=== PATIENT | male | born 1970 | race Caucasian/White ===

== ENCOUNTER 2023-05-26 20:18 | Inpatient (IN) | payer MEDICARE, MEDICAID, SELFPAY ==
[2023-05-26] VITALS (8 sets, daily range): BP systolic 72–150; BP diastolic 38–86; PULSE 79–136; RESP 19–25; O2SAT 87–97; BMI 38.7
--- NOTE | ~2023-05-26 | CT_ITS ---
EXAMINATION: CT CHEST WITHOUT CONTRAST CLINICAL INFORMATION: Concern for aspiration. COMPARISON: None available. TECHNIQUE: Multidetector volumetric CT imaging of the chest was done. Axial MIP volume rendering provided. Sagittal and coronal reformatted images were obtained. This CT examination was performed using dose optimization techniques as appropriate, variously including the following: *Automated exposure control *Adjustment of mA and/or kV according to patient size (this includes techniques or standardized protocols for targeted exams where dose is matched to indication/reason for exam; i.e. extremities or head) *Use of iterative reconstruction technique DLP: 340 mGy-cm FINDINGS: LEAFLET DISTRIBUTOR: Unremarkable LUNGS: The lungs are clear with no evidence of inflammation or nodules. MEDIASTINUM: The mediastinum is normal. CORONARY ARTERY CALCIFICATION: None visualized on this study. PLEURA: There is no pleural effusion. No pleural mass or thickening. AXILLA: No lymphadenopathy. UPPER ABDOMEN: Unremarkable. OSSEOUS STRUCTURES: Unremarkable. CT/CT chest wo IV con IMPRESSION: No significant abnormality seen. Fleischner guidelines were followed.
--- NOTE | ~2023-05-26 | XR_ITS ---
EXAMINATION: XR CHEST CLINICAL INFORMATION: Concern for pneumonia. COMPARISON: Chest x-ray September 07, 2018 TECHNIQUE: Frontal portable view of the chest was obtained. 11:18 PM FINDINGS: No significant abnormality is noted involving the heart, lungs, mediastinum, bony thorax or soft tissues. XR/XR chest 1V IMPRESSION: Unremarkable examination.
--- NOTE | 2023-05-26 20:30 | ECG_ITS ---
Test Reason : od crisis Blood Pressure : / mmHG Vent. Rate : 123 BPM Atrial Rate : 123 BPM P-R Int : 156 ms QRS Dur : 094 ms QT Int : 320 ms P-R-T Axes : 035 -14 067 degrees QTc Int : 458 ms Sinus tachycardia Otherwise normal ECG When compared with ECG of 07-SEP-2017 06:32, Minimal criteria for Inferior infarct are no longer Present Nonspecific T wave abnormality no longer evident in Inferior leads Nonspecific T wave abnormality, improved in Lateral leads Referred By: Cody Adam Electronically Signed By:Edgar Bloom
--- NOTE | 2023-05-26 20:38 | PC.NURSE ---
Pt alert and confused. Reporting SI I just want to drive my car into the river. Why are you trying to kill me. Increased agitation. Calms down with verbal reassurance. Sinus tach on monitor with HR 130's. Pt changed into hospital attire. Belongings placed in decon. MLP at bedside.
[2023-05-26 20:50] LABS: MANUAL DIFF FLAG NO
--- NOTE | 2023-05-26 20:53 | ED_ITS ---
HPI - General Adult General Chief complaint: Psychiatric Symptoms Stated complaint: crisis Time Seen by Provider: 05/26/23 20:24 Source: patient Mode of arrival: ambulatory Limitations: no limitations History of Present Illness HPI narrative: 53-year-old male first-time to this hospital history of drug abuse presents to the ED for crack cocaine use. Patient was brought by EMS with [facility] Department for patient being aggressive in the street and screaming. Patient taking drugs crack cocaine for the past 2 days straight. Patient states he was kicked out by his 2 days ago. Patient states he was clean for 7 years. Patient denies any trauma to the head. Patient wants detox. Related Data Home Medications Medication Instructions Recorded Confirmed cholecalciferol (vitamin D3) 50 50 mcg PO DAILY 05/27/23 05/27/23 mcg (2,000 unit) tablet (Vitamin D3) levothyroxine 150 mcg tablet 150 mcg PO DAILY 05/27/23 05/27/23 loratadine 10 mg tablet 10 mg PO DAILY 05/27/23 05/27/23 nabumetone 750 mg tablet 750 mg PO BID 05/27/23 05/27/23 Allergies Allergy/AdvReac Type Severity Reaction Status Date / Time No Known Allergies Allergy Unverified 01/21/20 19:29 [No Known Allergies*] Review of Systems 2 Review of Systems: Drug use Yes all other systems are reviewed and are negative PMFSH Past Medical History Onset Date is defined in the Problem List Problems that require an onset date and time if occurred within 24 hrs of arrival to the ED Aortic Dissection and Rupture; Neurologic impairment; Cardiopulmonary Arrest; Endotracheal Intubation; Insertion or Replacement of Mechanical Circulatory Assist Device Medical History Hypothyroidism Polysubstance use disorder Social History Social History Patient Tobacco Use Status: Current everyday Tobacco user Smoked in Last 30 Days: Yes Use of substances other than those prescribed or required for medical reasons: Yes Substance Use Type: Crack/Cocaine Last Used Substance: Just Prior to Admission Advance Directives: No Advance Directives Information Provided: No Nutrition Risks: No Nutritional Risk Physical Exam ED Vital Signs: Vital Signs - 24 hr 05/26/23 20:33 05/26/23 21:40 05/26/23 21:55 Pulse Rate 136 H 100 79 Respiratory Rate 24 H 25 H 24 H Blood Pressure 150/86 H 99/63 72/38 L Pulse Oximetry 96 87 L 88 L Oxygen Delivery Method Room Air Room Air Nasal Cannula Oxygen Flow Rate 2 05/26/23 22:10 05/26/23 22:25 05/26/23 22:40 Pulse Rate 92 88 86 Respiratory Rate 21 H 20 19 Blood Pressure 123/67 122/70 101/65 Pulse Oximetry 97 97 Oxygen Delivery Method Nasal Cannula Room Air Room Air Oxygen Flow Rate 2 05/26/23 22:55 05/26/23 23:10 Pulse Rate 83 94 Respiratory Rate 23 H Blood Pressure 100/57 L 132/83 Pulse Oximetry Oxygen Delivery Method Oxygen Flow Rate BMI result Body Mass Index 38.7 Const General: cooperative, healthy appearing, comfortable, no acute distress and well developed [facility] Head: Yes normal to inspection, Yes No palpable skull fracture present, Yes normocephalic and Yes atraumatic Eyes General: appearance normal, both eyes and all related structures Neck Neck: Yes normal visual inspection, Yes full ROM, Yes no lymphadenopathy, Yes no meningeal signs, Yes trachea midline, Yes supple, No anterior neck swelling and No tender Chest Chest palpation & inspection: normal inspection of the chest and normal palpation of entire chest wall Resp Effort & Inspection: normal respiratory effort and able to speak in complete sentences Auscultation: clear to auscultation bilaterally Cardio Jugular venous distension: no JVD Heart sounds: S1 normal heart sound present and S2 normal heart sound present GI Inspection: Yes normal to inspection Palpation (GI): Soft to palpation, not firm, nontender, no guarding and not rigid General: No CVA tenderness and Yes no CVA tenderness Back/Spine/Pelvis Back: no CVA tenderness, No CVA tenderness and No back tenderness Skin General skin exam: no rashes or lesions noted, elasticity normal and turgor normal Neuro Other: Aggressive towards staff General: no meningeal signs Extrem General: Yes normal to inspection, Yes full ROM and Yes capillary refill normal Medications Administered Generic Name Dose Route Start Last Admin Trade Name Freq PRN Reason Stop Dose Admin Enoxaparin Sodium 40 mg 05/27/23 00:30 05/27/23 01:03 Enoxaparin Sodium 40 Mg/0.4 Ml Syringe SUBCUT 40 mg BEDTIME STACY Administration Sodium Chloride 3 ml 05/27/23 08:00 05/27/23 07:42 0.9 % Sodium Chloride Flush 3 Ml Syringe IVFLUSH 3 ml QSHIFT STACY Administration Discontinued Medications Generic Name Dose Route Start Last Admin Trade Name Millie PRN Reason Stop Dose Admin Sodium Chloride 1,000 mls @ 999 mls/hr 05/26/23 21:17 05/26/23 23:26 Ns IV 05/26/23 22:17 Infused .Q1H1M STA Infusion Sodium Chloride 1,000 mls @ 999 mls/hr 05/26/23 21:19 05/26/23 22:11 Ns IV 05/26/23 22:19 Infused .Q1H1M STA Infusion Sodium Chloride 1,000 mls @ 999 mls/hr 05/26/23 21:48 05/26/23 23:26 Ns IV 05/26/23 22:48 Infused .Q1H1M STA Infusion Ceftriaxone Sodium 1 gm/ 50 mls @ 100 mls/hr 05/27/23 00:28 05/27/23 01:33 Sodium Chloride IV 05/27/23 00:57 Infused ONCE ONE Infusion Midazolam HCl 4 mg 05/26/23 20:51 05/26/23 21:38 Midazolam Hcl/Pf 2 Mg/2 Ml Vial IM 05/26/23 20:52 4 mg ONCE ONE Administration Olanzapine 10 mg 05/26/23 20:51 05/26/23 21:38 Olanzapine 10 Mg Vial IM 05/26/23 20:52 10 mg STAT STA Administration Medical Decision Making Medical Decision Making MDM Narrative: 53-year-old male brought to the ED for being aggressive and doing crack cocaine. Patient brought under police custody of the hand coughs. Patient was calm and then became disruptive saying people following him and aggressive and unsafe for himself. Labs showed CO of 8 necessity for IV fluids and VBG to be done but patient refused the patient was given Versed and Zyprexa which then caused hypoxia and hypotension. Patient placed on nasal cannula and now being given IV fluids. intial labs shows biCARB of 8 so VBG was ordered which showed nomral PH and HC03. 10:30pm: Repeat CO was too was 20. Probably lab error due to CO of 8. Lactic acid 7 most likely from drug use. Fluids ordered. Chest x-ray ordered to rule out aspiration pneumonia also speak cath for urine 02 saturation on room air is 100%. WBC count is from drug use. Patient is not septic. 11:51: Chest x-ray negative for infection. UA negative for infection. U tox positive for cocaine, marijuana, and fentanyl. Case discussed with Hospitalists, Dr. Collins who agrees patient should be admitted for Drug indcued SANIA. yesterday. HE believes patient is not septic. Differential Diagnosis Differential Diagnoses: The differential diagnosis associated with the presentation includes (drug induced encephalpathy, susbstance abuse, SANIA) Admission/Observation Consideration of admission/observation: Escalation of care including admission/observation considered Consult Healthcare Provider Management of the patient was discussed with: Hospitalist (Dr. Collins) Lab Data MDM Lab Attestation statement: I reviewed the patient's lab results. 05/27/23 05:15 05/27/23 05:15 Labs: Lab Results 05/26/23 05/26/23 05/26/23 Range/Units 20:46 21:49 21:54 WBC 17.8 H (4.8-10.8) X10*3/uL RBC 5.46 (4.60-5.80) X10*6/uL Hgb 16.3 (14.0-18.0) g/dl Hct 49.5 (42.0-52.0) % MCV 90.7 (80.0-98.0) fL MCH 29.9 (27.0-33.0) pg MCHC 32.9 (31.0-36.0) g/dl RDW 13.3 (11.0-16.0) % Plt Count 328 (160-400) X10*3/uL MPV 9.3 L (9.4-12.4) fL Immature Gran % (Auto) 1.0 H (0.0-0.4) % Neut % (Auto) 77.7 H (45-73) % Lymph % (Auto) 15.2 L (20-40) % [place] % (Auto) 5.6 (2-11) % Eos % (Auto) 0.1 (0-4) % Baso % (Auto) 0.4 (0-2) % Lymph # (Auto) 2.7 (1.2-4.9) X10*3/uL [place] # (Auto) 1.0 (0.1-1.2) X10*3/uL Eos # (Auto) 0.0 (0.0-0.4) X10*3/uL Baso # (Auto) 0.1 (0.0-0.2) X10*3/uL Abs Immat Gran (auto) 0.18 H (0.00-0.03) X10*3/uL Absolute Neuts (auto) 13.8 H (2.0-8.3) x10*3/uL Absolute Nucleated RBC 0.000 (0.0-0.012) X10*3/uL Nucleated RBC % (auto) 0.0 (0.0-0.2) /100WBC VBG pH 7.39 (7.32-7.43) VBG pCO2 28 mmHg VBG pO2 37 mmHg VBG HCO3 17 L (22-26) mmol/L VBG O2 Saturation 59.0 % VBG Base Excess -5.8 mmol/L Sodium 143 (135-145) mmol/L Potassium 3.7 (3.3-5.1) mmol/L Chloride 105 (96-108) mmol/L Carbon Dioxide 8 L* (22-29) mmol/L Anion Gap 34 H (12-20) BUN 19 H (9-16) mg/dL Creatinine 1.86 H (0.5-1.4) mg/dL Estim Creat Clear Calc 53.1 Estimated GFR 38 Random Glucose 180 H (60-115) mg/dL Lactic Acid 7.0 H* (0.5-2.0) mmol/L Calcium 9.9 (8.4-10.2) mg/dL Total Bilirubin 1.2 H (0.0-1.0) mg/dL AST 18 (5-37) U/L ALT 15 (0-40) U/L Alkaline Phosphatase 81 (39-117) U/L Total Creatine Kinase 442 H (38-174) U/L Total Protein 8.3 H (6.5-8.0) g/dL Albumin 4.5 (3.5-5.0) g/dL Urine Color Urine Appearance Urine pH (5.0-9.0) Ur Specific [place] (1.005-1.025) Urine Protein (Neg-Trace) mg/dL Urine Glucose (UA) (Negative) mg/dL Urine Ketones (Negative) mg/dL Urine Blood (Negative) Urine Nitrite (Negative) Ur Leukocyte Esterase (Negative) Urine RBC (0-2) /HPF Urine WBC (0-5) /HPF Ur Squamous Epith Cells (0-2) /HPF Urine Bacteria (None Seen) Hyaline Casts (0-2) /LPF Granular Casts Urine Opiates Screen (Not Detect) Urine Fentanyl Screen (Not Detect) Ur Barbiturates Screen (Not Detect) Ur Phencyclidine Scrn (Not Detect) Ur Amphetamines Screen (Not Detect) U Benzodiazepines Scrn (Not Detect) Urine Cocaine Screen (Not Detect) U Marijuana (THC) Screen (Not Detect) Ethyl Alcohol < 10 mg/dL 05/26/23 05/26/23 Range/Units 22:29 23:25 WBC (4.8-10.8) X10*3/uL RBC (4.60-5.80) X10*6/uL Hgb (14.0-18.0) g/dl Hct (42.0-52.0) % MCV (80.0-98.0) fL MCH (27.0-33.0) pg MCHC (31.0-36.0) g/dl RDW (11.0-16.0) % Plt Count (160-400) X10*3/uL MPV (9.4-12.4) fL Immature Gran % (Auto) (0.0-0.4) % Neut % (Auto) (45-73) % Lymph % (Auto) (20-40) % [place] % (Auto) (2-11) % Eos % (Auto) (0-4) % Baso % (Auto) (0-2) % Lymph # (Auto) (1.2-4.9) X10*3/uL [place] # (Auto) (0.1-1.2) X10*3/uL Eos # (Auto) (0.0-0.4) X10*3/uL Baso # (Auto) (0.0-0.2) X10*3/uL Abs Immat Gran (auto) (0.00-0.03) X10*3/uL Absolute Neuts (auto) (2.0-8.3) x10*3/uL Absolute Nucleated RBC (0.0-0.012) X10*3/uL Nucleated RBC % (auto) (0.0-0.2) /100WBC VBG pH (7.32-7.43) VBG pCO2 mmHg VBG pO2 mmHg VBG HCO3 (22-26) mmol/L VBG O2 Saturation % VBG Base Excess mmol/L Sodium 144 (135-145) mmol/L Potassium 4.0 (3.3-5.1) mmol/L Chloride 112 H (96-108) mmol/L Carbon Dioxide 20 L (22-29) mmol/L Anion Gap 16 (12-20) BUN 20 H (9-16) mg/dL Creatinine 1.64 H (0.5-1.4) mg/dL Estim Creat Clear Calc 60.2 Estimated GFR 44 Random Glucose 92 (60-115) mg/dL Lactic Acid (0.5-2.0) mmol/L Calcium 8.5 D (8.4-10.2) mg/dL Total Bilirubin 1.0 (0.0-1.0) mg/dL AST 16 (5-37) U/L ALT 13 (0-40) U/L Alkaline Phosphatase 61 (39-117) U/L Total Creatine Kinase (38-174) U/L Total Protein 6.5 (6.5-8.0) g/dL Albumin 3.6 (3.5-5.0) g/dL Urine Color Yellow Urine Appearance Clear Urine pH 5.5 (5.0-9.0) Ur Specific [place] 1.020 (1.005-1.025) Urine Protein 100 (2+) H (Neg-Trace) mg/dL Urine Glucose (UA) Negative (Negative) mg/dL Urine Ketones 15 (Negative) mg/dL Urine Blood Large (3+) H (Negative) Urine Nitrite Negative (Negative) Ur Leukocyte Esterase Negative (Negative) Urine RBC >20 H (0-2) /HPF Urine WBC 6-10 H (0-5) /HPF Ur Squamous Epith Cells 6-10 (0-2) /HPF Urine Bacteria None Seen (None Seen) Hyaline Casts 3-5 (0-2) /LPF Granular Casts Present Urine Opiates Screen Not Detected (Not Detect) Urine Fentanyl Screen POSITIVE H (Not Detect) Ur Barbiturates Screen Not Detected (Not Detect) Ur Phencyclidine Scrn Not Detected (Not Detect) Ur Amphetamines Screen Not Detected (Not Detect) U Benzodiazepines Scrn POSITIVE H (Not Detect) Urine Cocaine Screen POSITIVE H (Not Detect) U Marijuana (THC) Screen POSITIVE H (Not Detect) Ethyl Alcohol mg/dL Independent Interpretation I performed an independent interpretation of an: Plain X-Ray Radiology Impression Discussion of test interpretation with radiology: I have reviewed the radiologist's reading. Independent Historian Clinical information obtained from an independent historian. History obtained from or confirmed by: EMS External Record Review External record reviewed: Other (prior visits) Social Determinants Patient?s care significantly limited by Social Determinants of Health including: Alcoholism and drug addiction in family Discharge Plan Discharge Clinical Impression: Polysubstance use disorder, Drug-induced psychotic disorder, SANIA (acute kidney injury) Patient Disposition: Admitted As Inpatient Interventions: [place]-Suicide Risk Severity Scale Last Done: 05/27/23 10:00
[2023-05-26 20:55] LABS: Basophils Absolute Auto 0.1 X10*3/uL (0.0-0.2); Basophils Percent Auto 0.4 % (0-2); Eosinophils Percent Auto 0.1 % (0-4); Hematocrit 49.5 % (42.0-52.0); Hemoglobin 16.3 g/dl (14.0-18.0); Imm Gran Abs Auto 0.18 X10*3/uL (0.00-0.03); Lymphocytes Absolute Auto 2.7 X10*3/uL (1.2-4.9); Lymphocytes Percent Auto 15.2 % (20-40); Mean Corpuscular HGB Conc 32.9 g/dl (31.0-36.0); Mean Corpuscular Hemoglobin 29.9 pg (27.0-33.0); Mean Corpuscular Volume 90.7 fL (80.0-98.0); Mean Platelet Volume 9.3 fL (9.4-12.4); Monocytes Percent Auto 5.6 % (2-11); Neutrophils Absolute Auto 13.8 x10*3/uL (2.0-8.3); Neutrophils Percent Auto 77.7 % (45-73); Platelet Count 328 X10*3/uL (160-400); Red Blood Count 5.46 X10*6/uL (4.60-5.80); Red Cell Distribution Width 13.3 % (11.0-16.0); White Blood Count 17.8 X10*3/uL (4.8-10.8)
--- NOTE | 2023-05-26 21:07 | PC.NURSE ---
Pt becoming increasingly agitated. Yelling help me. Why are you trying to kill me. Pt is confused and having visual hallucinations reporting multiple people around him and only this keno writer / runner in the room. MLP ordered IM medications. Pt declined meds and became calm and cooperative and not yelling. Pt not medicated at this time as pt is calm and cooperative at the bedside.
[2023-05-26 21:16] LABS: Alanine Aminotransferase 15 U/L (0-40); Albumin Level 4.5 g/dL (3.5-5.0); Alkaline Phosphatase 81 U/L (39-117); Anion Gap 34 (12-20); Aspartate Amino Transferase 18 U/L (5-37); Bilirubin Total 1.2 mg/dL (0.0-1.0); Blood Urea Nitrogen 19 mg/dL (9-16); Calcium 9.9 mg/dL (8.4-10.2); Carbon Dioxide 8 mmol/L (22-29); Chloride 105 mmol/L (96-108); Creatinine Clr Calc Pharmacy 53.1; Estimated Glomerular Filt Rate 38; Ethanol < 10 mg/dL; Glucose Random 180 mg/dL (60-115); Potassium 3.7 mmol/L (3.3-5.1); Sodium 143 mmol/L (135-145); Total Protein 8.3 g/dL (6.5-8.0)
--- NOTE | 2023-05-26 21:19 | PC.NURSE ---
Critical result received: CO2 8 Critical provided to Cody. No new orders received at this time. Pt remains calm and cooperative at the bedside. Pitcher of water provided to pt as requested.
[2023-05-26] MEDS: OLANZapine 10 MG VIAL IM (21:38)
[2023-05-26] MEDS: Midazolam HCl/PF 2 MG/2 ML VIAL 4 MG IM (21:38)
--- NOTE | 2023-05-26 21:39 | PC.NURSE ---
Pt confused, yelling, agitated. Unable to redirect. Reports people are out to kill him. Critical labs received. Pt in need of IV fluids. Agitated and confused. Unable to place IV line safely. Medicated as ordered per MLP.
--- NOTE | 2023-05-26 21:40 | PC.NURSE ---
SPO2 87% RA. Pt placed on 2L NC. MLP aware.
[2023-05-26] MEDS: 0.9 % Sodium Chloride 1,000 ML 999 ML IV ×3 (21:49→22:11)
[2023-05-26 22:01] LABS: VBG Base Excess -5.8 mmol/L; VBG HCO3 17 mmol/L (22-26); VBG pCO2 28 mmHg; VBG pH 7.39 (7.32-7.43); VBG pO2 37 mmHg
[2023-05-26 22:02] LABS: Venous Blood Gas Refer to POC result
--- NOTE | 2023-05-26 22:19 | PC.NURSE ---
Pt sleeping at the bedside. No apparent distress noted. Breahts are even regular and unlabored. 20G IV line placed on the R AC. NS started as ordered. BP noted to be decreasing. MLP notified and at bedside.
[2023-05-26 22:51] LABS: Alanine Aminotransferase 13 U/L (0-40); Albumin Level 3.6 g/dL (3.5-5.0); Alkaline Phosphatase 61 U/L (39-117); Anion Gap 16 (12-20); Aspartate Amino Transferase 16 U/L (5-37); Blood Urea Nitrogen 20 mg/dL (9-16); Calcium 8.5 mg/dL (8.4-10.2); Carbon Dioxide 20 mmol/L (22-29); Chloride 112 mmol/L (96-108); Creatinine Clr Calc Pharmacy 60.2; Estimated Glomerular Filt Rate 44; Glucose Random 92 mg/dL (60-115); Sodium 144 mmol/L (135-145); Total Protein 6.5 g/dL (6.5-8.0)
[2023-05-26 23:33] LABS: Appearance Urine Clear; Color Urine Yellow; Glucose Urine UA Negative (Negative); Leukocyte Esterase Urine Negative (Negative); Nitrite Urine Negative (Negative); PH 5.5 (5.0-9.0); UMIC TRIGGER UACC YES; Urine Blood Large (3+) (Negative); Urine Ketones 15 mg/dL (Negative); Urine Protein 100 (2+) mg/dL (Neg-Trace)
[2023-05-26 23:39] LABS: Amphetamine Screen Urine Not Detected (Not Detect); Barbiturates, Urine Not Detected (Not Detect); Benzodiazepines Screen Urine POSITIVE (Not Detect); Cannabinoid Screen Urine POSITIVE (Not Detect); Cocaine Screen Urine POSITIVE (Not Detect); Fentanyl, urine POSITIVE (Not Detect); Opiate Screen Urine Not Detected (Not Detect); Phencyclidine Screen Urine Not Detected (Not Detect)
[2023-05-26 23:40] LABS: Bacteria Urine None Seen (None Seen); Granular Casts Urine Present; RBC Urine >20 /HPF (0-2); UACC Culture Trigger YES
[2023-05-26 23:55] LABS: Reflex Lactate? Lactic Acid Added
[2023-05-27] VITALS (7 sets, daily range): BP systolic 110–141; BP diastolic 60–79; PULSE 59–84; RESP 15–20; TEMP 36.5–37.6; O2SAT 95–98; BMI 36.4
--- NOTE | 2023-05-27 00:10 | PM.IMHP ---
History of Present Illness Date of Service: 05/27/23 Chief Complaint: Altered mentation This is a 53-year-old male with pertinent history of polysubstance use disorder, hypothyroidism who was brought to the emergency department for evaluation of altered mentation. Patient was brought in via [employer] police department as he was screaming and being aggressive in the street. Patient admitted to using crack cocaine for the past 2 days. States he was kicked out by his . History obtained via ER provider. Patient is only eye opening to painful stimulus at the time of my evaluation. He was given Versed and Zyprexa in the ER for agitation. He is interested in detox and was apparently clean for the last 7 years. Unable to obtain review of systems. In the emergency department, UDS positive for fentanyl and cocaine. Creatinine found to be elevated and patient found to have lactic acidosis Review of Systems Review of Systems: Yes Unobtainable due to mental status PMFSH Medical History Hypothyroidism Polysubstance use disorder Pertinent family history: Unable to obtain Social History Patient Tobacco Use Status: Current everyday Tobacco user Smoked in Last 30 Days: Yes Use of substances other than those prescribed or required for medical reasons: Yes Substance Use Type: Crack/Cocaine Last Used Substance: Just Prior to Admission Advance Directives: No Advance Directives Information Provided: No Nutrition Risks: No Nutritional Risk Meds Allergies Allergy/AdvReac Type Severity Reaction Status Date / Time No Known Allergies Allergy Unverified 01/21/20 19:29 [No Known Allergies*] Home Medications Medication Instructions Recorded Confirmed Last Taken Type cholecalciferol (vitamin D3) 50 50 mcg PO DAILY 05/27/23 05/27/23 Unknown History mcg (2,000 unit) tablet (Vitamin D3) levothyroxine 150 mcg tablet 150 mcg PO DAILY 05/27/23 05/27/23 Unknown History loratadine 10 mg tablet 10 mg PO DAILY 05/27/23 05/27/23 Unknown History nabumetone 750 mg tablet 750 mg PO BID 05/27/23 05/27/23 Unknown History Physical Exam Vital Signs and Narrative: Vital Signs: Last Vital Signs Pulse 92 05/26/23 22:10 Resp 21 H 05/26/23 22:10 BP 123/67 05/26/23 22:10 Pulse Ox 88 L 05/26/23 21:55 O2 Del Method Nasal Cannula 05/26/23 22:10 O2 Flow Rate 2 05/26/23 22:10 BMI result Body Mass Index 38.7 Middle-aged male lying in bed in no distress. Neck supple, no JVD Regular rate and rhythm, S1-S2 heard No crackles or wheezing appreciated Abdomen soft nontender, no guarding, no rigidity Patient is drowsy and only eye opens to painful stimulus, unable to follow commands, unable to have a conversation No pedal edema Results Labs 05/26/23 20:46 05/26/23 22:29 Labs: Laboratory Results - last 24 hr 05/26/23 05/26/23 05/26/23 20:46 21:49 21:54 MCV 90.7 MCH 29.9 MCHC 32.9 RDW 13.3 Plt Count 328 MPV 9.3 L Immature Gran % (Auto) 1.0 H Neut % (Auto) 77.7 H Lymph % (Auto) 15.2 L [place] % (Auto) 5.6 Eos % (Auto) 0.1 Baso % (Auto) 0.4 Lymph # (Auto) 2.7 Fisher # (Auto) 1.0 Eos # (Auto) 0.0 Baso # (Auto) 0.1 Abs Immat Gran (auto) 0.18 H Absolute Neuts (auto) 13.8 H Absolute Nucleated RBC 0.000 Nucleated RBC % (auto) 0.0 VBG pH 7.39 VBG pCO2 28 VBG pO2 37 VBG HCO3 17 L VBG O2 Saturation 59.0 VBG Base Excess -5.8 Anion Gap 34 H Estim Creat Clear Calc 53.1 Estimated GFR 38 Random Glucose 180 H Lactic Acid 7.0 H* Calcium 9.9 Total Bilirubin 1.2 H AST 18 ALT 15 Alkaline Phosphatase 81 Total Creatine Kinase 442 H Total Protein 8.3 H Albumin 4.5 Urine Color Urine Appearance Urine pH Ur Specific [place] Urine Protein Urine Glucose (UA) Urine Ketones Urine Blood Urine Nitrite Ur Leukocyte Esterase Urine RBC Urine WBC Ur Squamous Epith Cells Urine Bacteria Hyaline Casts Granular Casts Urine Opiates Screen Urine Fentanyl Screen Ur Barbiturates Screen Ur Phencyclidine Scrn Ur Amphetamines Screen U Benzodiazepines Scrn Urine Cocaine Screen U Marijuana (THC) Screen Ethyl Alcohol < 10 05/26/23 05/26/23 22:29 23:25 MCV MCH MCHC RDW Plt Count MPV Immature Gran % (Auto) Neut % (Auto) Lymph % (Auto) [place] % (Auto) Eos % (Auto) Baso % (Auto) Lymph # (Auto) Fisher # (Auto) Eos # (Auto) Baso # (Auto) Abs Immat Gran (auto) Absolute Neuts (auto) Absolute Nucleated RBC Nucleated RBC % (auto) VBG pH VBG pCO2 VBG pO2 VBG HCO3 VBG O2 Saturation VBG Base Excess Anion Gap 16 Estim Creat Clear Calc 60.2 Estimated GFR 44 Random Glucose 92 Lactic Acid Calcium 8.5 D Total Bilirubin 1.0 AST 16 ALT 13 Alkaline Phosphatase 61 Total Creatine Kinase Total Protein 6.5 Albumin 3.6 Urine Color Yellow Urine Appearance Clear Urine pH 5.5 Ur Specific [place] 1.020 Urine Protein 100 (2+) H Urine Glucose (UA) Negative Urine Ketones 15 Urine Blood Large (3+) H Urine Nitrite Negative Ur Leukocyte Esterase Negative Urine RBC >20 H Urine WBC 6-10 H Ur Squamous Epith Cells 6-10 Urine Bacteria None Seen Hyaline Casts 3-5 Granular Casts Present Urine Opiates Screen Not Detected Urine Fentanyl Screen POSITIVE H Ur Barbiturates Screen Not Detected Ur Phencyclidine Scrn Not Detected Ur Amphetamines Screen Not Detected U Benzodiazepines Scrn POSITIVE H Urine Cocaine Screen POSITIVE H U Marijuana (THC) Screen POSITIVE H Ethyl Alcohol Imaging Radiologist's Impressions: Impressions Chest X-Ray 05/26/23 23:33 IMPRESSION: Unremarkable examination. Assessment and Plan (1) Acute encephalopathy: Status: Acute Plan This is a 53-year-old male with pertinent history of polysubstance use disorder, hypothyroidism who was brought to the emergency department for evaluation of altered mentation. #. Acute toxic encephalopathy in the setting of polysubstance use disorder: Patient received Versed and Zyprexa in the ER. Continue to monitor for withdrawals. NPO until mentation improves. Supportive care. #. Polysubstance use disorder: UDS positive for cocaine, fentanyl. Consulted Addiction Team #. Elevated Creatinine: No baseline. Likely SANIA, continue to monitor urine output and creatinine with crystalloid resuscitation. #. Lactic acidosis, in the setting of hypoperfusion: Improved with crystalloid resuscitation. No sepsis #. Hypothyroidism: On Synthroid #. Obesity: Weight loss and diet counseling once mentation improves #. Reactive leukocytosis: Chest imaging without acute abnormality. No fever and no bacteriuria in the urine. Defer antibiotics for now Med rec pending DVT prophylaxis: Lovenox Full code Admit as inpatient and will require two night minimum hospital stay for close monitoring of mentation, kidney function (as above), which is not possible in a lesser acute setting. Quality Stroke Does the patient have a stroke diagnosis?: No VTE Prior VTE?: No VTE Risk Level:: Medical - moderate - high VTE Device Contraindication: Treatment Not Indicated VTE Drug Contraindication: N/A - Med Ordered
[2023-05-27] MEDS: cefTRIAXone sodium 1 GM in 0.9 % Sodium Chloride 50 ML IV (01:03)
[2023-05-27] MEDS: Enoxaparin Sodium 40 MG/0.4 ML SYRINGE SUBCUT (01:03)
--- NOTE | 2023-05-27 02:48 | PC.NURSE ---
Med req completed.
[2023-05-27 02:50] LABS: ~Lactic Acid-LAB USE ONLY 1.6 mmol/L (0.5-2.0)
--- NOTE | 2023-05-27 05:20 | PC.NURSE ---
Pt sleeping at the bedside. No apparent distress noted. Breaths are even regular and unlabored with equal chest rises. RR 18. NSR on monitor with HR 60. Pending bed assignment.
[2023-05-27 05:32] LABS: MANUAL DIFF FLAG NO
[2023-05-27 05:35] LABS: Basophils Percent Auto 0.2 % (0-2); Eosinophils Absolute Auto 0.1 X10*3/uL (0.0-0.4); Eosinophils Percent Auto 0.6 % (0-4); Hematocrit 41.2 % (42.0-52.0); Hemoglobin 14.1 g/dl (14.0-18.0); Imm Gran Abs Auto 0.05 X10*3/uL (0.00-0.03); Imm Gran Pct Auto 0.4 % (0.0-0.4); Lymphocytes Absolute Auto 1.8 X10*3/uL (1.2-4.9); Lymphocytes Percent Auto 14.2 % (20-40); Mean Corpuscular HGB Conc 34.2 g/dl (31.0-36.0); Mean Corpuscular Hemoglobin 30.2 pg (27.0-33.0); Mean Corpuscular Volume 88.2 fL (80.0-98.0); Mean Platelet Volume 9.8 fL (9.4-12.4); Monocytes Absolute Auto 0.9 X10*3/uL (0.1-1.2); Monocytes Percent Auto 7.6 % (2-11); Neutrophils Absolute Auto 9.5 x10*3/uL (2.0-8.3); Platelet Count 216 X10*3/uL (160-400); Red Blood Count 4.67 X10*6/uL (4.60-5.80); Red Cell Distribution Width 13.8 % (11.0-16.0); White Blood Count 12.4 X10*3/uL (4.8-10.8)
[2023-05-27 05:45] LABS: Anion Gap 13 (12-20); Blood Urea Nitrogen 20 mg/dL (9-16); Calcium 8.3 mg/dL (8.4-10.2); Carbon Dioxide 21 mmol/L (22-29); Chloride 112 mmol/L (96-108); Estimated Glomerular Filt Rate 58; Glucose Random 87 mg/dL (60-115); Potassium 4.4 mmol/L (3.3-5.1); Sodium 142 mmol/L (135-145)
--- NOTE | 2023-05-27 07:14 | PHA.MEDREC ---
Pharmacy Consult ? Medication Reconciliation Pharmacy has reviewed the medication reconciliation done by RN
--- NOTE | 2023-05-27 07:39 | PC.NURSE ---
Pt is a&ox4, calm cooperative, following commands. Denies si/hi, respiraitons even and unlabored. Inpatient provider paged about a diet order.
[2023-05-27] MEDS: 0.9 % Sodium Chloride Flush 3 ML SYRINGE IVFLUSH ×3 (07:42→21:08)
--- NOTE | 2023-05-27 08:13 | PC.NURSE ---
Food tray ordered.
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
--- NOTE | 2023-05-27 10:47 | HO.ADDICTCON ---
History of Present Illness Date of Service: 05/27/2023 Chief Complaint: AMS Reason for Consult: substance use Sources of Information: patient interviewed and chart reviewed HPI Narrative: Patient is a 53 year old male currently medically admitted with encephalopahy secondary to substance use. He had presented to the ED due to erratic behaviors at home and in the community. Seen by this freelance writer and guard driver in ED. He was awake, alert, pleasant and engaged in interview. Anxious, somewhat pressured affect. Reporting he had been in recovery for 7 years until several days ago when he smoked crack cocaine for several days in a row--leading to him experiencing hallucinations at home and believing that someone was trying to hurt his family. He expresses significant remorse and desire to enter treatment. Discussed +fentanyl in UDS--patient denies any history of opiate use. Review of Systems Constitutional: Reports as per HPI Psychiatric: Reports anxiety and Reports depression Diagnostics Vital Signs (24Hr): Vital Signs - 24 hr 05/26/23 20:33 05/26/23 21:40 05/26/23 21:55 Temperature Pulse Rate 136 H 100 79 Respiratory Rate 24 H 25 H 24 H Blood Pressure 150/86 H 99/63 72/38 L Pulse Oximetry 96 87 L 88 L Oxygen Delivery Method Room Air Room Air Nasal Cannula Oxygen Flow Rate 2 05/26/23 22:10 05/26/23 22:25 05/26/23 22:40 Temperature Pulse Rate 92 88 86 Respiratory Rate 21 H 20 19 Blood Pressure 123/67 122/70 101/65 Pulse Oximetry 97 97 Oxygen Delivery Method Nasal Cannula Room Air Room Air Oxygen Flow Rate 2 05/26/23 22:55 05/26/23 23:10 05/27/23 05:48 Temperature 98.1 F Pulse Rate 83 94 78 Respiratory Rate 23 H 16 Blood Pressure 100/57 L 132/83 129/78 Pulse Oximetry 97 Oxygen Delivery Method Room Air Oxygen Flow Rate 05/27/23 07:34 05/27/23 10:28 Temperature Pulse Rate 84 73 Respiratory Rate 16 16 Blood Pressure 121/78 119/79 Pulse Oximetry 98 98 Oxygen Delivery Method Room Air Room Air Oxygen Flow Rate BMI result Body Mass Index 38.7 Labs 05/27/23 05:15 05/28/23 05:25 Labs: Laboratory Results - last 48 hr 05/26/23 05/26/23 05/26/23 20:46 21:49 21:54 WBC 17.8 H RBC 5.46 Hgb 16.3 Hct 49.5 MCV 90.7 MCH 29.9 MCHC 32.9 RDW 13.3 Plt Count 328 MPV 9.3 L Immature Gran % (Auto) 1.0 H Neut % (Auto) 77.7 H Lymph % (Auto) 15.2 L Frio % (Auto) 5.6 Eos % (Auto) 0.1 Baso % (Auto) 0.4 Lymph # (Auto) 2.7 Frio # (Auto) 1.0 Eos # (Auto) 0.0 Baso # (Auto) 0.1 Abs Immat Gran (auto) 0.18 H Absolute Neuts (auto) 13.8 H Absolute Nucleated RBC 0.000 Nucleated RBC % (auto) 0.0 VBG pH 7.39 VBG pCO2 28 VBG pO2 37 VBG HCO3 17 L VBG O2 Saturation 59.0 VBG Base Excess -5.8 Sodium 143 Potassium 3.7 Chloride 105 Carbon Dioxide 8 L* Anion Gap 34 H BUN 19 H Creatinine 1.86 H Estim Creat Clear Calc 53.1 Estimated GFR 38 Random Glucose 180 H Lactic Acid 7.0 H* Lactic Acid F/U @ 2Hr Calcium 9.9 Total Bilirubin 1.2 H AST 18 ALT 15 Alkaline Phosphatase 81 Total Creatine Kinase 442 H Total Protein 8.3 H Albumin 4.5 Urine Color Urine Appearance Urine pH Ur Specific [place] Urine Protein Urine Glucose (UA) Urine Ketones Urine Blood Urine Nitrite Ur Leukocyte Esterase Urine RBC Urine WBC Ur Squamous Epith Cells Urine Bacteria Hyaline Casts Granular Casts Urine Opiates Screen Urine Fentanyl Screen Ur Barbiturates Screen Ur Phencyclidine Scrn Ur Amphetamines Screen U Benzodiazepines Scrn Urine Cocaine Screen U Marijuana (THC) Screen Ethyl Alcohol < 10 05/26/23 05/26/23 05/27/23 22:29 23:25 02:27 WBC RBC Hgb Hct MCV MCH MCHC RDW Plt Count MPV Immature Gran % (Auto) Neut % (Auto) Lymph % (Auto) Frio % (Auto) Eos % (Auto) Baso % (Auto) Lymph # (Auto) Frio # (Auto) Eos # (Auto) Baso # (Auto) Abs Immat Gran (auto) Absolute Neuts (auto) Absolute Nucleated RBC Nucleated RBC % (auto) VBG pH VBG pCO2 VBG pO2 VBG HCO3 VBG O2 Saturation VBG Base Excess Sodium 144 Potassium 4.0 Chloride 112 H Carbon Dioxide 20 L Anion Gap 16 BUN 20 H Creatinine 1.64 H Estim Creat Clear Calc 60.2 Estimated GFR 44 Random Glucose 92 Lactic Acid Lactic Acid F/U @ 2Hr 1.6 Calcium 8.5 D Total Bilirubin 1.0 AST 16 ALT 13 Alkaline Phosphatase 61 Total Creatine Kinase Total Protein 6.5 Albumin 3.6 Urine Color Yellow Urine Appearance Clear Urine pH 5.5 Ur Specific [place] 1.020 Urine Protein 100 (2+) H Urine Glucose (UA) Negative Urine Ketones 15 Urine Blood Large (3+) H Urine Nitrite Negative Ur Leukocyte Esterase Negative Urine RBC >20 H Urine WBC 6-10 H Ur Squamous Epith Cells 6-10 Urine Bacteria None Seen Hyaline Casts 3-5 Granular Casts Present Urine Opiates Screen Not Detected Urine Fentanyl Screen POSITIVE H Ur Barbiturates Screen Not Detected Ur Phencyclidine Scrn Not Detected Ur Amphetamines Screen Not Detected U Benzodiazepines Scrn POSITIVE H Urine Cocaine Screen POSITIVE H U Marijuana (THC) Screen POSITIVE H Ethyl Alcohol 05/27/23 05:15 WBC 12.4 H RBC 4.67 Hgb 14.1 Hct 41.2 L MCV 88.2 MCH 30.2 MCHC 34.2 RDW 13.8 Plt Count 216 D MPV 9.8 Immature Gran % (Auto) 0.4 Neut % (Auto) 77.0 H Lymph % (Auto) 14.2 L Frio % (Auto) 7.6 Eos % (Auto) 0.6 Baso % (Auto) 0.2 Lymph # (Auto) 1.8 Frio # (Auto) 0.9 Eos # (Auto) 0.1 Baso # (Auto) 0.0 Abs Immat Gran (auto) 0.05 H Absolute Neuts (auto) 9.5 H Absolute Nucleated RBC 0.000 Nucleated RBC % (auto) 0.0 VBG pH VBG pCO2 VBG pO2 VBG HCO3 VBG O2 Saturation VBG Base Excess Sodium 142 Potassium 4.4 Chloride 112 H Carbon Dioxide 21 L Anion Gap 13 BUN 20 H Creatinine 1.30 Estim Creat Clear Calc 76.0 Estimated GFR 58 Random Glucose 87 Lactic Acid Lactic Acid F/U @ 2Hr Calcium 8.3 L Total Bilirubin AST ALT Alkaline Phosphatase Total Creatine Kinase Total Protein Albumin Urine Color Urine Appearance Urine pH Ur Specific [place] Urine Protein Urine Glucose (UA) Urine Ketones Urine Blood Urine Nitrite Ur Leukocyte Esterase Urine RBC Urine WBC Ur Squamous Epith Cells Urine Bacteria Hyaline Casts Granular Casts Urine Opiates Screen Urine Fentanyl Screen Ur Barbiturates Screen Ur Phencyclidine Scrn Ur Amphetamines Screen U Benzodiazepines Scrn Urine Cocaine Screen U Marijuana (THC) Screen Ethyl Alcohol Imaging Radiology Impressions: ITS Impressions Chest X-Ray 05/26/23 23:33 IMPRESSION: Unremarkable examination. Chest CT 05/27/23 02:25 IMPRESSION: No significant abnormality seen. Fleischner guidelines were followed. Mental Status Exam Mental Status Exam Level of Consciousness: Awake and Appropriate Patient Behavior: Appropriate and Talkative Mood Description: Anxious Affect Description: Anxious Medications Medications Current Medications Acetaminophen (Acetaminophen 325 Mg Tablet) 650 mg PO Q6H PRN PRN Reason: Pain, Mild (Pain Scale 1-3) Enoxaparin Sodium (Enoxaparin Sodium 40 Mg/0.4 Ml Syringe) 40 mg SUBCUT BEDTIME [facility] Last Admin: 05/27/23 01:03 Dose: 40 mg Melatonin (Melatonin 3 Mg Tablet) 6 mg PO BEDTIME PRN PRN Reason: Insomnia Ondansetron HCl (Ondansetron Hcl 4 Mg/2 Ml Vial) 4 mg IVPUSH Q8H PRN PRN Reason: Nausea and Vomiting Sodium Chloride (0.9 % Sodium Chloride Flush 3 Ml Syringe) 3 ml IVFLUSH QSHIFT [facility] Last Admin: 05/27/23 07:42 Dose: 3 ml Allergies Allergies Allergy/AdvReac Type Severity Reaction Status Date / Time No Known Allergies Allergy Unverified 01/21/20 19:29 [No Known Allergies*] Assessment & Plan Assessment & Plan (1) Cocaine use disorder: Status: Acute Code(s): F14.10 - Cocaine abuse, uncomplicated Assessment and Plan: patient expressing desire fore treatment --medically admitted at this time, will reassess tomorrow no withdrawal sx noted. Total time managing care of this patient today ____ minutes. PMFSH Past Medical History Medical History Hypothyroidism Polysubstance use disorder Social History Social History Household Members: Spouse Household Members Other:: pt. stated currently lives in a hotel. Housing: House Do you presently have visiting nurse or other home services: No Comment: sitter at bedside. Patient Tobacco Use Status: Current everyday Tobacco user Tobacco use type: Cigarette Cigarette Packs Per Day: 1 Cigarettes Per Day: 20.0 Second Hand Smoke Exposure: No Substance Use Type: Crack/Cocaine and Marijuana service: No
[2023-05-27 13:02] LABS: Thyroid Stimulating Hormone 4.18 uIU/mL (0.32-4.0)
[2023-05-27 13:49] LABS: Lactic Acid 1.1 mmol/L (0.5-2.0)
--- NOTE | 2023-05-27 14:51 | P.CDIM_ITS ---
PROVIDER RESPONSE TEXT: To clarify, the appropriate diagnosis supported by the clinical indicators: Acute QUERY TEXT: PHYSICIAN'S DOCUMENTATION REQUEST Date of Query: 05/27/2023 12:11 PM EST Patient Name: Rajan Allred Admit Date: 05/27/2023 Dear Mabel Allred, A review of the medical record indicates additional documentation may be needed. Please review below and update the documentation accordingly. Clinical Indicators: PN: Plan - Lactic acidosis in the setting of hypoperfusion Improved with crystalloid resuscitation. No sepsis. Clarify which of the following accurately represents the acuity of the Lactic acidosis: Possible options might include: Acute Acute on chronic Other (explain) Clinically unable to determine (explain) Thank you, Moraima Pérez, CCS, CDIS Use of terms such as suspected, likely, concern for, or probable (associated with a specific diagnosi s that is being evaluated, monitored, or treated as if it exists) are acceptable and can be coded in the inpatient se tting, when documented at the time of discharge. Please use your independent medical judgment in providing your response. THIS QUERY IS PART OF THE PERMANENT MEDICAL RECORD
--- NOTE | 2023-05-27 21:32 | PC.NURSE ---
Lab called for a critical result, blood culture 1 of 2 bottle , aerobic bottle Gram positive cocci seen on gram stain, result relayed to Dr. Nagel.
[2023-05-28 03:26] VITALS: BP 114/56; PULSE 62; RESP 14; TEMP 37.6; O2SAT 99
[2023-05-28] MEDS: Levothyroxine Sodium 150 MCG TABLET PO (05:12)
[2023-05-28 06:11] LABS: Creatinine Clr Calc Pharmacy 76.5; Estimated Glomerular Filt Rate > 60
--- NOTE | 2023-05-28 07:30 | PHA.PROG ---
Admission Date/Time: May 27, 2023 00:08 Indication: BACTEREMIA Weight in k.2 kg Adjusted body weight in K.16 Thornton body weight in K.8 Obesity Dosing Indication % IBW:OBESE Serum Creatinine - Last 168 Hours 05/26/23 05/26/23 05/27/23 20:46 22:29 05:15 Creatinine 1.86 H 1.64 H 1.30 05/28/23 05:25 Creatinine 1.25 Estimated CrCl and GFR - Last 168 Hours 05/26/23 05/26/23 05/27/23 20:46 22:29 05:15 Estim Creat Clear Calc 53.1 60.2 76.0 Estimated GFR 38 44 58 05/28/23 05:25 Estim Creat Clear Calc 76.5 Estimated GFR > 60 Vancomycin Loading Dose: 2000 mg x 1 Current Vancomycin Dosing Regimen: 1000 mg Q12H Vancomycin Monitoring using AUC goal of 400 - 600 range with trough as surrogate marker: 508 Date and Time for next Vancomycin Level to be drawn: 05/29 @0900 Pharmacist Comments on Vancomycin Plan: Vancomycin dosing will take advantage of [employer] as a clinical decision support tool that uses Bayesian modeling to calculate individual patient's pharmacokinetic parameters and forecast the patient's drug concentration time course with the target goal AUC 24 range of 400 - 600 mg/L/hr.
[2023-05-28 07:46] VITALS: BP 125/73; PULSE 72; RESP 18; TEMP 36.6; O2SAT 95
[2023-05-28] MEDS: Acetaminophen 325 MG TABLET 650 MG PO (08:33)
[2023-05-28] MEDS: 0.9 % Sodium Chloride Flush 3 ML SYRINGE IVFLUSH ×3 (08:34→22:53)
[2023-05-28] MEDS: vancomycin HCL 1,000 MG in 0.9 % Sodium Chloride 250 ML 270 MG IV ×2 (11:27→22:53)
--- NOTE | 2023-05-28 12:04 | MHC.CM.PN ---
pt pt lives alone has been staying in a hotel the last 2 weeks declined offer of a group home list hcp complted dc plan home no servies
--- NOTE | 2023-05-28 12:45 | MHC.RECOVRN ---
Addendum entered by Nova Dunn 05/28/23 15:30: Pt does not qualify for ATS due to length of recurrence. Original Note: T/w notified pt interested in inpatient SURENDRA tx. Referral sent to [facility] as they have reported bed availability.
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
--- NOTE | 2023-05-28 14:10 | PM.PSYCN ---
History of Present Illness Date of Service: 05/28/2023 Chief Complaint: AMS Reason for Consult: depression, SI Requesting physician: Mabelernestina Allred Discussed with referring provider: Yes Sources of Information: patient interviewed, chart reviewed and crisis/core team assessment reviewed HPI Narrative: Mr. Allred is a 53 year-old male who was brought via EMS after he was found in the community, yelling, confused, agitated. In the ED he continued to present as confused, agitated reporting staff trying to stab him. His utox was positive for opioids, fentanyl, cocaine. Pt was admitted for SANIA, mild elevation CK, received IV fluids. His mentation has improved. however, pt has reported increased depression and SI. Pt seen in his room. He presents as calm and cooperative. He is fully oriented and able to tell that he was confused thinking someone was trying to hurt him. He reports he had similar episode several years ago in context of cocaine use. He reports he has not used for about 7 years, which confirms. He reports he has been having problems with and recently asked him to leave. He has a job. He left and was staying at a motel in [place]. He reports he felt hopeless, helpless. He reports he felt that life was not worth living and started to use substances to numb his feeling. He reports that even prior to leaving the home, he has been feeling more depressed, without much to look forward. He reports he agrees that he does not want to be with his that being apart is best for both of them. However, he continues to report that he feels there is no point of him being alive. He finds it difficult to find reasons to be alive at this point. He denies any plan or intent to harm self but states that he just doesn't care anymore. No VH/AH. No delusional content. [facility], [facility] Medical History Hypothyroidism Polysubstance use disorder Diagnostics Vital Signs (24Hr): Vital Signs - 24 hr 05/27/23 16:03 05/27/23 17:16 05/27/23 19:01 Temperature 98.6 F 97.7 F 98.6 F Pulse Rate 68 67 61 Respiratory Rate 16 20 20 Blood Pressure 110/60 120/66 141/71 H Pulse Oximetry 95 95 96 Oxygen Delivery Method Room Air Room Air Room Air 05/28/23 03:26 05/28/23 07:46 Temperature 99.7 F 97.8 F Pulse Rate 62 72 Respiratory Rate 14 18 Blood Pressure 114/56 L 125/73 Pulse Oximetry 99 95 Oxygen Delivery Method Room Air Room Air BMI result Body Mass Index 36.4 Labs 05/27/23 05:15 05/29/23 05:42 Labs: Laboratory Results - last 48 hr 05/26/23 05/26/23 05/26/23 20:46 21:49 21:54 WBC 17.8 H RBC 5.46 Hgb 16.3 Hct 49.5 MCV 90.7 MCH 29.9 MCHC 32.9 RDW 13.3 Plt Count 328 MPV 9.3 L Immature Gran % (Auto) 1.0 H Neut % (Auto) 77.7 H Lymph % (Auto) 15.2 L [place] % (Auto) 5.6 Eos % (Auto) 0.1 Baso % (Auto) 0.4 Lymph # (Auto) 2.7 [place] # (Auto) 1.0 Eos # (Auto) 0.0 Baso # (Auto) 0.1 Abs Immat Gran (auto) 0.18 H Absolute Neuts (auto) 13.8 H Absolute Nucleated RBC 0.000 Nucleated RBC % (auto) 0.0 Hold Purple Top VBG pH 7.39 VBG pCO2 28 VBG pO2 37 VBG HCO3 17 L VBG O2 Saturation 59.0 VBG Base Excess -5.8 Sodium 143 Potassium 3.7 Chloride 105 Carbon Dioxide 8 L* Anion Gap 34 H BUN 19 H Creatinine 1.86 H Estim Creat Clear Calc 53.1 Estimated GFR 38 Random Glucose 180 H Lactic Acid 7.0 H* Lactic Acid F/U @ 2Hr Calcium 9.9 Total Bilirubin 1.2 H AST 18 ALT 15 Alkaline Phosphatase 81 Total Creatine Kinase 442 H Total Protein 8.3 H Albumin 4.5 TSH Urine Color Urine Appearance Urine pH Ur Specific [place] Urine Protein Urine Glucose (UA) Urine Ketones Urine Blood Urine Nitrite Ur Leukocyte Esterase Urine RBC Urine WBC Ur Squamous Epith Cells Urine Bacteria Hyaline Casts Granular Casts Urine Opiates Screen Urine Fentanyl Screen Ur Barbiturates Screen Ur Phencyclidine Scrn Ur Amphetamines Screen U Benzodiazepines Scrn Urine Cocaine Screen U Marijuana (THC) Screen Ethyl Alcohol < 10 05/26/23 05/26/23 05/27/23 22:29 23:25 02:27 WBC RBC Hgb Hct MCV MCH MCHC RDW Plt Count MPV Immature Gran % (Auto) Neut % (Auto) Lymph % (Auto) [place] % (Auto) Eos % (Auto) Baso % (Auto) Lymph # (Auto) [place] # (Auto) Eos # (Auto) Baso # (Auto) Abs Immat Gran (auto) Absolute Neuts (auto) Absolute Nucleated RBC Nucleated RBC % (auto) Hold Purple Top VBG pH VBG pCO2 VBG pO2 VBG HCO3 VBG O2 Saturation VBG Base Excess Sodium 144 Potassium 4.0 Chloride 112 H Carbon Dioxide 20 L Anion Gap 16 BUN 20 H Creatinine 1.64 H Estim Creat Clear Calc 60.2 Estimated GFR 44 Random Glucose 92 Lactic Acid Lactic Acid F/U @ 2Hr 1.6 Calcium 8.5 D Total Bilirubin 1.0 AST 16 ALT 13 Alkaline Phosphatase 61 Total Creatine Kinase Total Protein 6.5 Albumin 3.6 TSH Urine Color Yellow Urine Appearance Clear Urine pH 5.5 Ur Specific [place] 1.020 Urine Protein 100 (2+) H Urine Glucose (UA) Negative Urine Ketones 15 Urine Blood Large (3+) H Urine Nitrite Negative Ur Leukocyte Esterase Negative Urine RBC >20 H Urine WBC 6-10 H Ur Squamous Epith Cells 6-10 Urine Bacteria None Seen Hyaline Casts 3-5 Granular Casts Present Urine Opiates Screen Not Detected Urine Fentanyl Screen POSITIVE H Ur Barbiturates Screen Not Detected Ur Phencyclidine Scrn Not Detected Ur Amphetamines Screen Not Detected U Benzodiazepines Scrn POSITIVE H Urine Cocaine Screen POSITIVE H U Marijuana (THC) Screen POSITIVE H Ethyl Alcohol 05/27/23 05/27/23 05/28/23 05:15 13:15 05:25 WBC 12.4 H RBC 4.67 Hgb 14.1 Hct 41.2 L MCV 88.2 MCH 30.2 MCHC 34.2 RDW 13.8 Plt Count 216 D MPV 9.8 Immature Gran % (Auto) 0.4 Neut % (Auto) 77.0 H Lymph % (Auto) 14.2 L [place] % (Auto) 7.6 Eos % (Auto) 0.6 Baso % (Auto) 0.2 Lymph # (Auto) 1.8 [place] # (Auto) 0.9 Eos # (Auto) 0.1 Baso # (Auto) 0.0 Abs Immat Gran (auto) 0.05 H Absolute Neuts (auto) 9.5 H Absolute Nucleated RBC 0.000 Nucleated RBC % (auto) 0.0 Hold Purple Top SEE NOTE VBG pH VBG pCO2 VBG pO2 VBG HCO3 VBG O2 Saturation VBG Base Excess Sodium 142 Potassium 4.4 Chloride 112 H Carbon Dioxide 21 L Anion Gap 13 BUN 20 H Creatinine 1.30 1.25 Estim Creat Clear Calc 76.0 76.5 Estimated GFR 58 > 60 Random Glucose 87 Lactic Acid 1.1 Lactic Acid F/U @ 2Hr Calcium 8.3 L Total Bilirubin AST ALT Alkaline Phosphatase Total Creatine Kinase 1231 H Total Protein Albumin TSH 4.18 H Urine Color Urine Appearance Urine pH Ur Specific [place] Urine Protein Urine Glucose (UA) Urine Ketones Urine Blood Urine Nitrite Ur Leukocyte Esterase Urine RBC Urine WBC Ur Squamous Epith Cells Urine Bacteria Hyaline Casts Granular Casts Urine Opiates Screen Urine Fentanyl Screen Ur Barbiturates Screen Ur Phencyclidine Scrn Ur Amphetamines Screen U Benzodiazepines Scrn Urine Cocaine Screen U Marijuana (THC) Screen Ethyl Alcohol Imaging Radiology Impressions: ITS Impressions Chest X-Ray 05/26/23 23:33 IMPRESSION: Unremarkable examination. Chest CT 05/27/23 02:25 IMPRESSION: No significant abnormality seen. Fleischner guidelines were followed. Mental Status Exam Mental Status Exam Narrative: Appearance: wearing hospital gown, good hygiene, in NAD Behavior: cooperative Psychomotor: no agitation or retardation noted Speech: clear, normal rate/rhythm/volume, spontaneous TP: linear TC: no signs of psychosis or delusions, very hopeless, depressed Mood: depressed Affect: blunted, tearful at times SI: passive but feels very hopeless HI: none VH/AH: none Delusions: none Insight/judgment: intact x 2 Memory/cog: alert, oriented x 3. grossly intact to conversational testing. Medications Medications Current Medications Acetaminophen (Acetaminophen 325 Mg Tablet) 650 mg PO Q6H PRN PRN Reason: Pain, Mild (Pain Scale 1-3) Last Admin: 05/28/23 08:33 Dose: 650 mg Enoxaparin Sodium (Enoxaparin Sodium 40 Mg/0.4 Ml Syringe) 40 mg SUBCUT BEDTIME STACY Last Admin: 05/27/23 21:11 Dose: Not Given Vancomycin HCl 1,000 mg/ (Sodium Chloride) 270 mls @ 270 mls/hr IV Q12H [facility] Last Infusion: 05/28/23 12:39 Dose: Infused Levothyroxine Sodium (Levothyroxine Sodium 150 Mcg Tablet) 150 mcg PO DAILY@0600 [facility] Last Admin: 05/28/23 05:12 Dose: 150 mcg Melatonin (Melatonin 3 Mg Tablet) 6 mg PO BEDTIME PRN PRN Reason: Insomnia Ondansetron HCl (Ondansetron Hcl 4 Mg/2 Ml Vial) 4 mg IVPUSH Q8H PRN PRN Reason: Nausea and Vomiting Pharmacy Consult (Consult Rx Vancomycin Dosing) 1 each MISCELLANE DAILY PRN PRN Reason: Consult order Sodium Chloride (0.9 % Sodium Chloride Flush 3 Ml Syringe) 3 ml IVFLUSH QSHIFT [facility] Last Admin: 05/28/23 08:34 Dose: 3 ml Allergies Allergies Allergy/AdvReac Type Severity Reaction Status Date / Time No Known Allergies Allergy Unverified 01/21/20 19:29 [No Known Allergies*] Assessment & Plan Assessment & Plan (1) MDD (major depressive disorder), recurrent episode, moderate: Status: Acute Code(s): F33.1 - Major depressive disorder, recurrent, moderate Plan Mr. Allred is a 53 year-old male who initially was brought via EMS when he was found agitated, confused, with s/s of psychosis. Utox was positive for fentanyl, opioids, cocaine. He recently relapsed on substances after 7 years of sobriety. He has been presenting as more depressed, hopeless which worsened after he had marital issues and asked him to leave their home. He continues to endorse feeling depressed, very hopeless, with no much he identifies in his life as worth living for. We discussed inpatient psychiatric admission for treatment of severe depression. He currently is not connected with psych providers. PLAN 1. Bed search for inpatient level of care for stabilization, safety and containment. Total time managing care of this patient today ____ minutes.
--- NOTE | 2023-05-28 14:11 | PM.DS ---
DS: Providers Provider Date of admission: 05/27/23 00:08 Primary care physician: Unknown Physician Consults: 05/27/23 00:08 Addiction Medicine Routine Consulting Provider: Addiction Covering Reason for consultation: cocaine and fentanyl use disorder 05/27/23 10:29 Consult to Psychiatry Routine Consulting Provider: Psych Covering Reason for consultation: delusional 05/27/23 17:58 Consult for Sitter Routine Reason for consultation: Toxic encephalopathy Has provider been notified: No 05/28/23 14:00 Consult to Care Team Stat Comment: Reason for consultation: medically clear, depression DS: Diagnosis Discharge Diagnosis (1) Cocaine use disorder: Status: Acute (2) SANIA (acute kidney injury): Status: Acute DS: Summary Hospital Course Hospital Course: History and physical as per admitting provider. This is a 53-year-old male with pertinent history of polysubstance use disorder, hypothyroidism who was brought to the emergency department for evaluation of altered mentation. Patient was brought in via [place] police department as he was screaming and being aggressive in the street. Patient admitted to using crack cocaine for the past 2 days. States he was kicked out by his . History obtained via ER provider. Patient is only eye opening to painful stimulus at the time of my evaluation. He was given Versed and Zyprexa in the ER for agitation. He is interested in detox and was apparently clean for the last 7 years. Unable to obtain review of systems. In the emergency department, UDS positive for fentanyl and cocaine. Creatinine found to be elevated and patient found to have lactic acidosis. 53-year-old male with pertinent history of polysubstance use disorder, hypothyroidism who was brought to the emergency department for evaluation of altered mentation. According to the patient's she had told him that she needed some space and he left the home for about a week and he was staying in a motel. The last time she spoke to him was on Saturday he reported he was going to sleep but then she tried to reach out to him Saturday and she could not get a hold of him and then later on found out that he was in the emergency department. Patient and report that he had been clean and sober since 2018. Both denied any history of previous mental health issues. Patient was treated for acute toxic metabolic encephalopathy sex secondary to substance abuse disorder, this resolved in the ER mostly and he was treated with Versed and Zyprexa. He did have some complaints of suicidal ideation, stating that he wanted to . He was seen by the psychiatric provider who thought that he was severely depressed as needed inpatient psychiatric care. He was evaluated by the care team+++++ He was noted to have an elevated creatinine likely related to mild rhabdomyolysis, this did trend down and treated with IV fluids Lactic acidosis in the setting of hypoperfusion possibly, improved with IV fluids, no sepsis Reactive leukocytosis no infectious abnormality and no antibiotics warranted Hypothyroidism, on levothyroxine elevated TSH at 4, free T4 and T3 checked++++ Physical Exam Vital Signs: Vital Signs: Last Vital Signs Temp 97.8 F 05/28/23 07:46 Pulse 72 05/28/23 07:46 Resp 18 05/28/23 07:46 BP 125/73 05/28/23 07:46 Pulse Ox 95 05/28/23 07:46 O2 Del Method Room Air 05/28/23 07:46 O2 Flow Rate 2 05/26/23 22:10 BMI result Body Mass Index 36.4 DS: Data Data Completed and Pending Labs on day of discharge: Laboratory Results - last 24 hr 05/28/23 05:25 Hold Purple Top SEE NOTE Creatinine 1.25 Estim Creat Clear Calc 76.5 Estimated GFR > 60 Preliminary micro results at discharge 05/26/23 21:49 Blood Culture - Preliminary Blood - Venous Gram positive cocci 05/26/23 22:11 Blood Culture - Preliminary Blood - Venous No growth after 24 hours. Discharge Plan Discharge Discharge Diagnosis: Drug-induced encephalopathy SANIA Suicide ideation Depression Referrals: Physician,Natasha J [Primary Care Provider] - 1 Week Discharge Medications: Continued nabumetone 750 mg tablet 750 mg PO BID levothyroxine 150 mcg tablet 150 mcg PO DAILY loratadine 10 mg tablet 10 mg PO DAILY cholecalciferol (vitamin D3) [Vitamin D3] 50 mcg (2,000 unit) tablet 50 mcg PO DAILY Diet: Advance to usual diet Activity on Discharge: As tolerated Health Concerns: Drug-induced encephalopathy SANIA Suicide ideation Depression Plan of Treatment: Transfer to psychiatric unit for inpatient psychiatric care of depression Assessment: See discharge summary
[2023-05-28 15:07] VITALS: BP 108/71; PULSE 51; RESP 20; TEMP 36.2; O2SAT 94
[2023-05-28 15:23] LABS: Free T4 (Free Thyroxine) 0.73 ng/dL (0.71-1.85)
--- NOTE | 2023-05-28 15:47 | MHC.RECOVRN ---
Met with pt in 364 to follow up and inform pt ATS is not an option at this time. Pt sitting in bed, awake, alert, easily engages in conversation. Educated pt on qualifications for ATS as well as CSS. Pt declines CSS referrals at this time. Pt provided with written resources if he would like to contact any facilities. Pt reports he is unable to return home, offered prison resources, pt declines. Provided pt with other resources including [facility], [facility], recovery coaching, IOP/PHP. Pt denies questions or concerns at this time. Discussed with Jocelyn Ashby APRN.
[2023-05-28 19:17] VITALS: BP 143/84; PULSE 66; RESP 18; TEMP 36.4; O2SAT 96
[2023-05-28 19:38] VITALS: BP 155/75; PULSE 69; RESP 20; TEMP 36.7; O2SAT 97
[2023-05-29 03:06] VITALS: BP 134/91; PULSE 73; RESP 18; TEMP 37.4; O2SAT 97
[2023-05-29] MEDS: Levothyroxine Sodium 150 MCG TABLET PO (05:43)
[2023-05-29 06:28] LABS: Creatinine Clr Calc Pharmacy 88.5; Estimated Glomerular Filt Rate > 60
[2023-05-29] MEDS: 0.9 % Sodium Chloride Flush 3 ML SYRINGE IVFLUSH ×3 (07:58→21:45)
[2023-05-29 08:00] VITALS: BP 128/86; PULSE 74; RESP 18; TEMP 36.7; O2SAT 96
[2023-05-29] MEDS: Docusate Sodium 100 MG CAPSULE PO (09:10)
[2023-05-29] MEDS: polyethylene glycoL 3350 17 GM POWD.PACK PO (09:10)
[2023-05-29 09:25] LABS: COVID-19 Test Negative (Negative); IDNOW Serial# 58CA691E
[2023-05-29 09:41] LABS: Vancomycin Random 11.1 mcg/mL (15-20)
--- NOTE | 2023-05-29 09:58 | HE.PHANOTE ---
re f f [facility] patients level came back this morning at 11.1. increasing dose to 1250 mg Q12H. will get another level after 2 doses, next level 05/30 @0900, predicted AUC 484
--- NOTE | 2023-05-29 10:42 | MHC.CARE ---
Pt is not currently medically cleared per Kae on 05/29/23 due to IV infusions and pending blood cultures and will need to be re-refereed to CARE team once medically stable and ready for discharge.
[2023-05-29] MEDS: vancomycin HCL 1,250 MG in 0.9 % Sodium Chloride 250 ML 166.67 MG IV ×2 (11:44→23:14)
--- NOTE | 2023-05-29 12:45 | MHC.CM.PN ---
EMR reviewed. Per MD rounds patient is not medically cleared at this time. Per psych consult, when medically cleared patient will require inpatient psych bed. CARE team is involved. CM will continue to follow.
--- NOTE | 2023-05-29 14:36 | P.PNIM_ITS ---
Subjective Subjective Date of Service: 05/29/23 Interval History: Being followed for acute toxic metabolic encephalopathy in setting of polysubstance abuse, patient this morning is awake alert offers no acute complaints, tolerating diet no nausea no vomiting no abdominal pain, denies fever, no chills, no skin rash. Review of Systems All other system reviewed and negative. Physical Exam 2 Vital Signs: Vital Signs: Last Vital Signs Temp 98.1 F 05/29/23 08:00 Pulse 74 05/29/23 08:00 Resp 18 05/29/23 08:00 BP 128/86 05/29/23 08:00 Pulse Ox 96 05/29/23 08:00 O2 Del Method Room Air 05/29/23 08:00 O2 Flow Rate 2 05/26/23 22:10 BMI result Body Mass Index 36.4 Const: Other: General awake alert x3, resting comfortably in no acute distress. Neck supple, no JVD. CVS regular rate rhythm, Respiratory lungs clear to auscultation, no respiratory distress, no wheeze, no rhonchi. Gastrointestinal abdomen soft, nontender, bowel sounds audible, no guarding , no rigidity. Extremities no edema. Neuro nonfocal Skin no rash Objective Data Active Medications Acetaminophen (Acetaminophen 325 Mg Tablet) 650 mg PO Q6H PRN PRN Reason: Pain, Mild (Pain Scale 1-3) Last Admin: 05/28/23 08:33 Dose: 650 mg Documented By: FELA Enoxaparin Sodium (Enoxaparin Sodium 40 Mg/0.4 Ml Syringe) 40 mg SUBCUT BEDTIME [facility] Last Admin: 05/28/23 19:46 Dose: Not Given Documented By: MADY Non-Admin Reason: Patient Refused Vancomycin HCl 1,250 mg/ (Sodium Chloride) 250 mls @ 166.667 mls/hr IV Q12H [facility] Last Infusion: 05/29/23 13:30 Dose: Infused Documented By: JERARDO Levothyroxine Sodium (Levothyroxine Sodium 150 Mcg Tablet) 150 mcg PO DAILY@0600 [facility] Last Admin: 05/29/23 05:43 Dose: 150 mcg Documented By: MADY Melatonin (Melatonin 3 Mg Tablet) 6 mg PO BEDTIME PRN PRN Reason: Insomnia Ondansetron HCl (Ondansetron Hcl 4 Mg/2 Ml Vial) 4 mg IVPUSH Q8H PRN PRN Reason: Nausea and Vomiting Pharmacy Consult (Consult Rx Vancomycin Dosing) 1 each MISCELLANE DAILY PRN PRN Reason: Consult order Polyethylene Glycol (Polyethylene Glycol 3350 17 Gm Powd.Pack) 17 gm PO DAILY [facility] Last Admin: 05/29/23 09:10 Dose: 17 gm Documented By: MATTY Sodium Chloride (0.9 % Sodium Chloride Flush 3 Ml Syringe) 3 ml IVFLUSH QSHIFT [facility] Last Admin: 05/29/23 07:58 Dose: 3 ml Documented By: MATTY Labs 05/27/23 05:15 05/29/23 05:42 Labs: Laboratory Results - last 24 hr 05/28/23 05/29/23 05/29/23 14:42 05:42 08:57 Estim Creat Clear Calc 88.5 Estimated GFR > 60 Total Creatine Kinase 1221 H Free T4 0.73 Random Vancomycin COVID-19 ([facility]) Negative COVID-19 Clin Com See Note 05/29/23 09:05 Estim Creat Clear Calc Estimated GFR Total Creatine Kinase Free T4 Random Vancomycin 11.1 L COVID-19 ([place]) COVID-19 Clin Com Microbiology Microbiology Results: Microbiology 05/26/23 21:49 Blood Culture - Preliminary Blood - Venous Gram positive cocci 05/26/23 22:11 Blood Culture - Preliminary Blood - Venous No growth after 48 hours. 05/27/23 22:05 Blood Culture - Preliminary Blood - Venous No growth after 24 hours. 05/27/23 22:05 Blood Culture - Preliminary Blood - Venous No growth after 24 hours. 05/26/23 Unknown Urine Culture - Final Urine clean catch - Urine banuelos top No growth. Assessment and Plan (1) Cocaine use disorder: Status: Acute (2) SANIA (acute kidney injury): Status: Acute Plan 53-year-old male with pertinent history of polysubstance use disorder, hypothyroidism who was brought to the emergency department for evaluation of altered mentation. According to the patient's she had told him that she needed some space and he left the home for about a week and he was staying in a motel. The last time she spoke to him was on Saturday he reported he was going to sleep but then she tried to reach out to him Saturday and she could not get a hold of him and then later on found out that he was in the emergency department. Patient and report that he had been clean and sober since 2018. Both denied any history of previous mental health issues. Gram-positive bacteremia 1/2 blood culture positive for Gram-positive cocci On IV vancomycin day 2 final sensitivities pending No obvious source of infection noted no skin infection, normal chest x-ray, normal urine analysis no bowel issues Follow final blood culture report, repeat blood cultures x2 negative times 24 hours. Suicidal ideation Patient stated that he wanted to Continue Sitter Seen by psychiatry they recommend inpatient level of care for stabilization, safety and containment , will consult Care team when medically clear Acute toxic encephalopathy in the setting of polysubstance use disorder. Resolved Supportive care. Polysubstance use disorder UDS positive for cocaine, fentanyl. Seen by Addiction Team patient declined CSS referrals, written resources provided, if you would like to contact any facilities. SANIA likely prerenal and due to cocaine use treated with IV fluids renal function returned to normal Lactic acidosis in the setting of hypoperfusion Improved with crystalloid resuscitation. No sepsis Reactive leukocytosis Chest imaging without acute abnormality. No fever and no bacteriuria in the urine. Defer antibiotics for now Hypothyroidism On Synthroid Obesity. BMI 38.7 Discussed importance of weight management as this may be contributing to worsening of other comorbidities DVT prophylaxis: Lovenox Full code continue hospital stay for positive blood cultures on IV vancomycin waiting for final sensitivities. Quality Stroke Does the patient have a stroke diagnosis?: No VTE Prior VTE?: No VTE Risk Level:: Medical - moderate - high VTE Device Contraindication: Treatment Not Indicated VTE Drug Contraindication: N/A - Med Ordered
[2023-05-29 15:05] VITALS: BP 128/78; PULSE 69; RESP 20; TEMP 36.3; O2SAT 96
[2023-05-29 19:08] VITALS: BP 121/69; PULSE 78; RESP 20; TEMP 36.4; O2SAT 98
[2023-05-29 21:23] LABS: Triiodothyronine T3 Free 1.9 pg/mL (2.3-4.2)
[2023-05-29] MEDS: Enoxaparin Sodium 40 MG/0.4 ML SYRINGE SUBCUT (21:45)
[2023-05-30 03:45] VITALS: BP 117/74; PULSE 71; RESP 18; TEMP 36.6; O2SAT 98
[2023-05-30] MEDS: Levothyroxine Sodium 150 MCG TABLET PO (05:59)
[2023-05-30 06:10] LABS: Creatinine Clr Calc Pharmacy 96.6; Estimated Glomerular Filt Rate > 60
[2023-05-30 07:51] VITALS: BP 132/88; PULSE 69; RESP 18; TEMP 36.3; O2SAT 96
[2023-05-30 09:30] LABS: Vancomycin Random 13.2 mcg/mL (15-20)
--- NOTE | 2023-05-30 13:13 | P.DS_ITS ---
DS: Providers Provider Date of Service: 05/30/23 Date of admission: 05/27/23 00:08 Primary care physician: Unknown Physician Consults: 05/27/23 00:08 Addiction Medicine Routine Consulting Provider: Addiction Covering Reason for consultation: cocaine and fentanyl use disorder 05/27/23 10:29 Consult to Psychiatry Routine Consulting Provider: Psych Covering Reason for consultation: delusional 05/27/23 17:58 Consult for Sitter Routine Reason for consultation: Toxic encephalopathy Has provider been notified: No 05/28/23 14:00 Consult to Care Team Stat Comment: Reason for consultation: medically clear, depression 05/30/23 10:49 Consult to Care Team Stat Comment: Reason for consultation: medically cleared DS: Diagnosis Discharge Diagnosis (1) Cocaine use disorder: Status: Acute (2) SANIA (acute kidney injury): Status: Acute DS: Summary Hospital Course Hospital Course: History and physical as per admitting provider. This is a 53-year-old male with pertinent history of polysubstance use disorder, hypothyroidism who was brought to the emergency department for evaluation of altered mentation. Patient was brought in via [employer] police department as he was screaming and being aggressive in the street. Patient admitted to using crack cocaine for the past 2 days. States he was kicked out by his . History obtained via ER pro vider. Patient is only eye opening to painful stimulus at the time of my evaluation. He was given Versed and Zyprexa in the ER for agitation. He is interested in detox and was apparently clean for the last 7 years. Unable to obtain review of systems. In the emergency department, UDS positive for fentanyl and cocaine. Creatinine found to be elevated and patient found to have lactic acidosis. 53-year-old male with pertinent history of polysubstance use disorder, hypothyroidism who was brought to the emergency department for evaluation of altered mentation. According to the patient's she had told him that she needed some space and he left the home for about a week and he was staying in a motel. The last time she spoke to him was on Saturday he reported he was going to sleep but then she tried to reach out to him Saturday and she could not get a hold of him and then later on found out that he was in the emergency department. Patient and report that he had been clean and sober since 2018. Both denied any history of previous mental health issues. Patient was treated for acute toxic metabolic encephalopathy secondary to substance abuse disorder, with Versed and Zyprexa. He did have some complaints of suicidal ideation, stating that he wanted to . He was seen by the psychiatric provider who thought that he was severely depressed as needed inpatient psychiatric care. He was evaluated by the care team and being transferred to He was noted to have an elevated creatinine likely prerenal and related to mild rhabdomyolysis, he was treated with IV fluids renal function normalized. Acute Lactic acidosis in the setting of hypoperfusion , improved with IV fluids, no sepsis Reactive leukocytosis no infectious abnormality and no antibiotics warranted, WBC trended down. Hypothyroidism, on levothyroxine elevated TSH at 4.18, normal free T4 and mildly low free T3 continue current dose of Synthroid, and repeat TSH in 6 weeks. Time Attestation Discharge coordination time: Greater than 30 minutes Quality: Safe Use of Opioids Does Pt have an Active Cancer Diagnosis on the Problem List?: No Quality: Stroke Does the patient have a stroke diagnosis?: No Physical Exam Vital Signs: Vital Signs: Last Vital Signs Temp 97.3 F 05/30/23 07:51 Pulse 69 05/30/23 07:51 Resp 18 05/30/23 07:51 BP 132/88 05/30/23 07:51 Pulse Ox 96 05/30/23 07:51 O2 Del Method Room Air 05/30/23 07:51 O2 Flow Rate 2 05/26/23 22:10 BMI result Body Mass Index 36.4 Const: Other: General awake alert x3, resting comfortably in no acute distress. Neck supple, no JVD. CVS regular rate rhythm, Respiratory lungs clear to auscultation, no respiratory distress, no wheeze, no rhonchi. Gastrointestinal abdomen soft, non tender, bowel sounds audible, no guarding , no rigidity. Extremities no edema. Neuro non focal Skin no rash DS: Data Data Completed and Pending Labs on day of discharge: Laboratory Results - last 24 hr 05/28/23 05/30/23 05/30/23 14:42 05:40 08:56 Creatinine 0.99 Estim Creat Clear Calc 96.6 Estimated GFR > 60 Free T3 1.9 L Random Vancomycin 13.2 L Preliminary micro results at discharge 05/27/23 22:05 Blood Culture - Preliminary Blood - Venous No growth after 48 hours. 05/27/23 22:05 Blood Culture - Preliminary Blood - Venous No growth after 48 hours. 05/26/23 22:11 Blood Culture - Preliminary Blood - Venous No growth after 48 hours. Discharge Plan Discharge Anticipated Discharge Date/Time: 05/30/23 13:00 Patient Disposition: Xfer Psychiatric Hosp Discharge Diagnosis: Drug-induced encephalopathy SANIA Suicide ideation Depression Referrals: Physician,Unknown J [Primary Care Provider] - 1 Week Discharge Medications: Continued nabumetone 750 mg tablet 750 mg PO BID levothyroxine 150 mcg tablet 150 mcg PO DAILY loratadine 10 mg tablet 10 mg PO DAILY cholecalciferol (vitamin D3) [Vitamin D3] 50 mcg (2,000 unit) tablet 50 mcg PO DAILY Discharge Orders: Discharge Order (Routine); Ordered 05/30/23 Ordered By: María Ngo Diet: Advance to usual diet Activity on Discharge: As tolerated Stand Alone Forms: Patient Portal Discharge page Health Concerns: Drug-induced encephalopathy SANIA Suicide ideation Depression Plan of Treatment: Transfer to psychiatric unit for inpatient psychiatric care of depression and SI Assessment: See discharge summary
--- NOTE | 2023-05-30 13:28 | MHC.CM.PN ---
PT MEDICALLY CLEARED AND SEEN BY CARE TEAM PT TO TRANSFER TO INPATIENT PSYCH TODAY
== END 2023-05-30 15:12 | disposition short-term general hospital (02) | DRG 917 ==
LOC: HO.ED 05-27 00:52 → HO.EDOVER 05-27 00:57 → HO.S3 05-27 16:14
PROVIDERS: Internal Medicine; Nurse Practitioner Acute Care; Physician Assistant; Social Worker; Admitting Provider Student in an Organized Health Care Education/Training Program; Emergency Provider Emergency Medicine; Visit Provider Hospitalist
DX: T40.5X1A Poisoning by cocaine, accidental (unintentional), initial encounter (principal); G92.8 Other toxic encephalopathy; E87.21 Acute metabolic acidosis; F33.1 Major depressive disorder, recurrent, moderate; R78.81 Bacteremia; M62.82 Rhabdomyolysis; R45.851 Suicidal ideations; F14.10 Cocaine abuse, uncomplicated; F19.10 Other psychoactive substance abuse, uncomplicated; E03.9 Hypothyroidism, unspecified; E66.9 Obesity, unspecified; Z68.36 Body mass index [BMI] 36.0-36.9, adult; Z20.822 Contact with and (suspected) exposure to COVID-19; Z79.890 Hormone replacement therapy; Z79.899 Other long term (current) drug therapy
CPT/HCPCS: 36415; 71045; 71250; 80048; 80053; 80202; 80307; 81001; 82550; 82565; 82803; 83605; 84439; 84443; 84481; 85025; 87040; 87086; 87147; 87205; 87635; 93005; 99285; J0696; J1650; J2250; J2359; J3370; J3371; S9485

== ENCOUNTER → 2023-05-26 20:30 | Outpatient (BNV) | payer MEDICARE, MEDICAID, SELFPAY | PROVIDERS: Admitting Provider Student in an Organized Health Care Education/Training Program; Emergency Provider Emergency Medicine; Visit Provider Internal Medicine Cardiovascular Disease | DX: R00.0 Tachycardia, unspecified (principal) | CPT/HCPCS: 93010 ==

== ENCOUNTER → 2023-05-27 00:08 | Outpatient (BNV) | payer MEDICARE, MEDICAID, SELFPAY | PROVIDERS: Admitting Provider Student in an Organized Health Care Education/Training Program; Emergency Provider Emergency Medicine; Visit Provider Nurse Practitioner Psychiatric/Mental Health | DX: F33.1 Major depressive disorder, recurrent, moderate (principal) | CPT/HCPCS: 99222; 99232 ==

== ENCOUNTER → 2023-05-27 00:08 | Outpatient (BNV) | payer MEDICARE, MEDICAID, SELFPAY | PROVIDERS: Admitting Provider Student in an Organized Health Care Education/Training Program; Emergency Provider Emergency Medicine; Visit Provider Student in an Organized Health Care Education/Training Program | DX: N17.9 Acute kidney failure, unspecified (principal); F14.10 Cocaine abuse, uncomplicated | CPT/HCPCS: 99223; 99232; 99233; 99239; 99499 ==

== ENCOUNTER 2023-05-30 15:16 | Inpatient (IN) | payer MEDICARE, MEDICAID, SELFPAY ==
[2023-05-30 15:45] VITALS: BP 114/76; PULSE 87; RESP 18; TEMP 36.8; O2SAT 97
[2023-05-30 17:54] VITALS: BMI 34.1
--- NOTE | 2023-05-30 17:55 | PC.ADMIT ---
Rajan arrived to the unit on a Conditional Voluntary, sharp check done by junior technical writer and and male [facility]. Rajan reports that his kicked him out and didn't give him a reason, he reported he relapsed on crack after being cleaned for seven years, appears remorseful. He reported feeling hopeless and helpless, I was doing so good, what are people going to think of me, he appeared sad when talking about his younger son. He reported endorsing 5/10 depression, when asked if he had any thoughts of wanting to hurt self stated No, verbalized to look for staff if thoughts occur. Patient reports he doesn't have family support, I haven't talk to my mom in years. He appears future oriented reports he would like to get set up with outside providers before getting discharged.
[2023-05-30 19:47] VITALS: BP 140/91; PULSE 81; RESP 18; TEMP 36.2; O2SAT 99
[2023-05-31] MEDS: Levothyroxine Sodium 150 MCG TABLET PO (06:56)
[2023-05-31 09:00] VITALS: BP 134/87; PULSE 66; RESP 16; TEMP 36.4; O2SAT 98
[2023-05-31] MEDS: Cholecalciferol (Vitamin D3) 25 MCG TABLET 50 MCG PO (09:34)
[2023-05-31] MEDS: Loratadine 10 MG TABLET PO (09:34)
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
[2023-05-31 20:30] VITALS: BP 120/85; PULSE 92; RESP 16; TEMP 36.2; O2SAT 98
[2023-05-31] MEDS: Acetaminophen 325 MG TABLET 650 MG PO (22:51)
[2023-06-01] MEDS: Levothyroxine Sodium 150 MCG TABLET PO (06:41)
[2023-06-01 08:30] VITALS: BP 140/86; PULSE 59; TEMP 36.4; O2SAT 98
[2023-06-01] MEDS: Loratadine 10 MG TABLET PO (09:13)
[2023-06-01] MEDS: Cholecalciferol (Vitamin D3) 25 MCG TABLET 50 MCG PO (09:13)
--- NOTE | 2023-06-01 17:47 | HO.PSYCHPN ---
Subjective Subjective Date of Service: 06/01/23 Reason For Visit: depression/ si Interim History: Patient reports he is doing better. Says his now agrees to take him back. He denies depression. Denies anxiety. He is more hopeful and feels ready to be discharged. He denies SI. Declines regular medications for mood and anxiety. Affect appears euthymic. . Mental Status Exam Mental Status Exam Narrative: Appearance: wearing hospital gown, good hygiene, in NAD Behavior: cooperative Psychomotor: no agitation or retardation noted Speech: clear, normal rate/rhythm/volume, spontaneous TP: linear TC: no signs of psychosis or delusions Mood: good. not bad. Affect: moderately flexible, normo-intense, non-labile SI: passive HI: denies VH/AH: denies Insight/judgment: intact x 2 Memory/cog: alert, oriented x 3. grossly intact to conversational testing. Diagnostics Vital Signs (24Hr): Vital Signs - 24 hr 05/31/23 20:30 06/01/23 08:30 Temperature 97.1 F 97.5 F Pulse Rate 92 59 Respiratory Rate 16 Blood Pressure 120/85 140/86 H Pulse Oximetry 98 98 Oxygen Delivery Method Room Air Room Air BMI result Body Mass Index 34.1 Medications Medications Current Medications Acetaminophen (Acetaminophen 325 Mg Tablet) 650 mg PO Q6H PRN PRN Reason: Pain, Mild (Pain Scale 1-3) Last Admin: 05/31/23 22:51 Dose: 650 mg Levothyroxine Sodium (Levothyroxine Sodium 150 Mcg Tablet) 150 mcg PO DAILY@0600 [facility] Last Admin: 06/01/23 06:41 Dose: 150 mcg Loratadine (Loratadine 10 Mg Tablet) 10 mg PO DAILY [facility] Last Admin: 06/01/23 09:13 Dose: 10 mg Melatonin (Melatonin 3 Mg Tablet) 6 mg PO BEDTIME PRN PRN Reason: Insomnia Polyethylene Glycol (Polyethylene Glycol 3350 17 Gm Powd.Pack) 17 gm PO DAILY [facility] Last Admin: 06/01/23 09:15 Dose: Not Given Vitamin D (Cholecalciferol (Vitamin D3) 25 Mcg Tablet) 50 mcg PO DAILY [facility] Last Admin: 06/01/23 09:13 Dose: 50 mcg Allergies Allergies Allergy/AdvReac Type Severity Reaction Status Date / Time No Known Allergies Allergy Unverified 01/21/20 19:29 [No Known Allergies*] Assessment & Plan Assessment & Plan (1) MDD (major depressive disorder), recurrent episode, moderate: Status: Acute Code(s): F33.1 - Major depressive disorder, recurrent, moderate (2) Cocaine use disorder: Status: Acute Code(s): F14.10 - Cocaine abuse, uncomplicated (3) Hypothyroidism: Status: Acute Code(s): E03.9 - Hypothyroidism, unspecified Plan continue home medications regimen. declines psych meds, but interested in therapy referral. planning to continue discussion and negotiation with his over the weekend with goal of reconciliation and return home. 06/01: Continue current tx plan. Reason for continued inpatient stay Substantial Risk for: harm to self and rapid decompensation Time Spent With Patient Time: Total time managing care of this patient today ____ minutes.
[2023-06-01 20:05] VITALS: BP 133/84; PULSE 75; RESP 16; TEMP 36.4; O2SAT 98
[2023-06-02] MEDS: Levothyroxine Sodium 150 MCG TABLET PO (06:40)
[2023-06-02 07:20] VITALS: BP 109/73; PULSE 70; RESP 16; TEMP 36.2; O2SAT 99
[2023-06-02] MEDS: Loratadine 10 MG TABLET PO (09:09)
[2023-06-02] MEDS: Cholecalciferol (Vitamin D3) 25 MCG TABLET 50 MCG PO (09:09)
--- NOTE | 2023-06-02 16:52 | P.PNPSI_ITS ---
Subjective Subjective Date of Service: 06/02/23 Reason For Visit: depression/ si Interim History: Patient reports I feel 100% better. Says he wants to go home as his now agrees to take him back. He denies depression. Denies anxiety. He is more hopeful and feels ready to be discharged. He denies SI. Declines regular medications for mood and anxiety. Affect appears euthymic. . Mental Status Exam Mental Status Exam Narrative: Appearance: wearing hospital gown, good hygiene, in NAD Behavior: cooperative Psychomotor: no agitation or retardation noted Speech: clear, normal rate/rhythm/volume, spontaneous TP: linear TC: no signs of psychosis or delusions Mood: good. not bad. Affect: moderately flexible, normo-intense, non-labile SI: passive HI: denies VH/AH: denies Insight/judgment: intact x 2 Memory/cog: alert, oriented x 3. grossly intact to conversational testing. Diagnostics Vital Signs (24Hr): Vital Signs - 24 hr 06/01/23 20:05 06/02/23 07:20 Temperature 97.5 F 97.1 F Pulse Rate 75 70 Respiratory Rate 16 16 Blood Pressure 133/84 109/73 Pulse Oximetry 98 99 Oxygen Delivery Method Room Air Room Air BMI result Body Mass Index 34.1 Medications Medications Current Medications Acetaminophen (Acetaminophen 325 Mg Tablet) 650 mg PO Q6H PRN PRN Reason: Pain, Mild (Pain Scale 1-3) Last Admin: 05/31/23 22:51 Dose: 650 mg Levothyroxine Sodium (Levothyroxine Sodium 150 Mcg Tablet) 150 mcg PO DAILY@0600 [facility] Last Admin: 06/02/23 06:40 Dose: 150 mcg Loratadine (Loratadine 10 Mg Tablet) 10 mg PO DAILY [facility] Last Admin: 06/02/23 09:09 Dose: 10 mg Melatonin (Melatonin 3 Mg Tablet) 6 mg PO BEDTIME PRN PRN Reason: Insomnia Polyethylene Glycol (Polyethylene Glycol 3350 17 Gm Powd.Pack) 17 gm PO DAILY [facility] Last Admin: 06/02/23 09:11 Dose: Not Given Vitamin D (Cholecalciferol (Vitamin D3) 25 Mcg Tablet) 50 mcg PO DAILY [facility] Last Admin: 06/02/23 09:09 Dose: 50 mcg Allergies Allergies Allergy/AdvReac Type Severity Reaction Status Date / Time No Known Allergies Allergy Unverified 01/21/20 19:29 [No Known Allergies*] Assessment & Plan Assessment & Plan (1) MDD (major depressive disorder), recurrent episode, moderate: Status: Acute Code(s): F33.1 - Major depressive disorder, recurrent, moderate (2) Cocaine use disorder: Status: Acute Code(s): F14.10 - Cocaine abuse, uncomplicated (3) Hypothyroidism: Status: Acute Code(s): E03.9 - Hypothyroidism, unspecified Plan continue home medications regimen. declines psych meds, but interested in therapy referral. planning to continue discussion and negotiation with his over the weekend with goal of reconciliation and return home. 06/01: Continue current tx plan. 06/02: Continue current management and treatment plan. Reason for continued inpatient stay Substantial Risk for: harm to self and rapid decompensation Time Spent With Patient Time: Total time managing care of this patient today ____ minutes.
[2023-06-02 19:49] VITALS: BP 126/84; PULSE 97; RESP 16; TEMP 36.5; O2SAT 98
[2023-06-03] MEDS: Levothyroxine Sodium 150 MCG TABLET PO (06:46)
[2023-06-03 07:40] VITALS: BP 117/68; PULSE 61; RESP 14; TEMP 36.6; O2SAT 99
[2023-06-03] MEDS: Loratadine 10 MG TABLET PO (08:47)
[2023-06-03] MEDS: Cholecalciferol (Vitamin D3) 25 MCG TABLET 50 MCG PO (08:47)
--- NOTE | 2023-06-03 08:58 | P.PNPSI_ITS ---
Subjective Subjective Date of Service: 06/03/23 Reason For Visit: depression/ si Subjective Notes: 3 Day Interim History: Reviewed with . active on unit, social with peers. Patient reports feeling good today; pt stated, my and I have been talking and we're going to try couples therapy. I'm also going to do therapy . 3 day up Saturday. Denies SI/HI/VH/AH. Attending Groups: Yes Review of Systems Constitutional: Reports as per HPI Eyes: Reports as per HPI Reports as per HPI Cardiovascular: Reports as per HPI Respiratory: Reports as per HPI Gastrointestinal: Reports as per HPI Genitourinary: Reports as per HPI Musculoskeletal: Reports as per HPI Skin/Breast: Reports as per HPI Reports as per HPI Psychiatric: Reports as per HPI Endocrine: Reports as per HPI Hematologic/Lymphatic: Reports as per HPI Allergic/Immunologic: Reports as per HPI Mental Status Exam Mental Status Exam Narrative: Pt is alert and oriented; behavior is cooperative and calm; dressed in casual attire; mood is described as good ; eye contact appropriate; Speech is normal rate, volume and prosody and not pressured; thought process is organized and goal directed; Thought content is on tx; otherwise pertinent to relevant topics and without any delusional content, paranoid ideations or grandiosity; denies SI/HI/VH/AH. Diagnostics Vital Signs (24Hr): Vital Signs - 24 hr 06/02/23 19:49 06/03/23 07:40 Temperature 97.7 F 97.8 F Pulse Rate 97 61 Respiratory Rate 16 14 Blood Pressure 126/84 117/68 Pulse Oximetry 98 99 Oxygen Delivery Method Room Air Room Air BMI result Body Mass Index 34.1 Medications Medications Current Medications Acetaminophen (Acetaminophen 325 Mg Tablet) 650 mg PO Q6H PRN PRN Reason: Pain, Mild (Pain Scale 1-3) Last Admin: 05/31/23 22:51 Dose: 650 mg Levothyroxine Sodium (Levothyroxine Sodium 150 Mcg Tablet) 150 mcg PO DAILY@0600 [facility] Last Admin: 06/03/23 06:46 Dose: 150 mcg Loratadine (Loratadine 10 Mg Tablet) 10 mg PO DAILY [facility] Last Admin: 06/03/23 08:47 Dose: 10 mg Melatonin (Melatonin 3 Mg Tablet) 6 mg PO BEDTIME PRN PRN Reason: Insomnia Polyethylene Glycol (Polyethylene Glycol 3350 17 Gm Powd.Pack) 17 gm PO DAILY [facility] Last Admin: 06/03/23 08:47 Dose: Not Given Vitamin D (Cholecalciferol (Vitamin D3) 25 Mcg Tablet) 50 mcg PO DAILY [facility] Last Admin: 06/03/23 08:47 Dose: 50 mcg Allergies Allergies Allergy/AdvReac Type Severity Reaction Status Date / Time No Known Allergies Allergy Unverified 01/21/20 19:29 [No Known Allergies*] Assessment & Plan Assessment & Plan (1) MDD (major depressive disorder), recurrent episode, moderate: Status: Acute Code(s): F33.1 - Major depressive disorder, recurrent, moderate (2) Cocaine use disorder: Status: Acute Code(s): F14.10 - Cocaine abuse, uncomplicated (3) Hypothyroidism: Status: Acute Code(s): E03.9 - Hypothyroidism, unspecified Plan continue home medications regimen. declines psych meds, but interested in therapy referral. planning to continue discussion and negotiation with his over the weekend with goal of reconciliation and return home. 06/01: Continue current tx plan. 06/02: Continue current management and treatment plan. 06/03: active on unit, social with peers. Patient reports feeling good today; pt stated, my and I have been talking and we're going to try couples therapy. I'm also going to do therapy . 3 day up Saturday. Denies SI/HI/VH/AH. Patient educated on: diagnosis, medication risk/benefits, substance abuse and therapeutic strategies Informed Consent: understands Reason for continued inpatient stay Substantial Risk for: med/psych decompensation Time Spent With Patient Time: Total time managing care of this patient today _20___ minutes.
[2023-06-03] MEDS: Acetaminophen 325 MG TABLET 650 MG PO ×2 (09:53→16:21)
[2023-06-03 20:15] VITALS: BP 124/79; PULSE 84; RESP 18; TEMP 36.8; O2SAT 98
[2023-06-04] MEDS: Levothyroxine Sodium 150 MCG TABLET PO (06:59)
[2023-06-04 07:35] VITALS: BP 125/79; PULSE 67; TEMP 36.3; O2SAT 98
[2023-06-04] MEDS: Cholecalciferol (Vitamin D3) 25 MCG TABLET 50 MCG PO (08:24)
[2023-06-04] MEDS: Loratadine 10 MG TABLET PO (08:24)
[2023-06-04] MEDS: Acetaminophen 325 MG TABLET 650 MG PO (11:48)
[2023-06-04 20:15] VITALS: BP 119/72; PULSE 90; RESP 18; TEMP 36.3; O2SAT 98
--- NOTE | 2023-06-04 21:28 | HO.PSYCHPN ---
Subjective Subjective Date of Service: 06/04/23 Reason For Visit: depression/ si Subjective Notes: Conditional Voluntary and 3 Day Interim History: Patient looking forward to discharge mood future oriented very verbal engaged in treatment feeling relieved by connection with patient agreeable to outpatient treatment including recovery and therapy. Able to discuss issues in his marriage that may have led to recent issues regarding parenting seems to better integration recent events denies in plantar hand for self-harm or wish to use Mental Status Exam Mental Status Exam Narrative: Pt is alert and oriented; behavior is cooperative and calm; dressed in casual attire; mood is described as good ; eye contact appropriate; Speech is normal rate, volume and prosody and not pressured; thought process is organized and goal directed; Thought content is on tx; otherwise pertinent to relevant topics and without any delusional content, paranoid ideations or grandiosity; denies SI/HI/VH/AH. Hopeful regarding discharge Diagnostics Vital Signs (24Hr): Vital Signs - 24 hr 06/04/23 07:35 Temperature 97.3 F Pulse Rate 67 Blood Pressure 125/79 Pulse Oximetry 98 Oxygen Delivery Method Room Air BMI result Body Mass Index 34.1 Medications Medications Current Medications Acetaminophen (Acetaminophen 325 Mg Tablet) 650 mg PO Q6H PRN PRN Reason: Pain, Mild (Pain Scale 1-3) Last Admin: 06/04/23 11:48 Dose: 650 mg Levothyroxine Sodium (Levothyroxine Sodium 150 Mcg Tablet) 150 mcg PO DAILY@0600 [facility] Last Admin: 06/04/23 06:59 Dose: 150 mcg Loratadine (Loratadine 10 Mg Tablet) 10 mg PO DAILY [facility] Last Admin: 06/04/23 08:24 Dose: 10 mg Melatonin (Melatonin 3 Mg Tablet) 6 mg PO BEDTIME PRN PRN Reason: Insomnia Polyethylene Glycol (Polyethylene Glycol 3350 17 Gm Powd.Pack) 17 gm PO DAILY [facility] Last Admin: 06/04/23 08:39 Dose: Not Given Vitamin D (Cholecalciferol (Vitamin D3) 25 Mcg Tablet) 50 mcg PO DAILY [facility] Last Admin: 06/04/23 08:24 Dose: 50 mcg Allergies Allergies Allergy/AdvReac Type Severity Reaction Status Date / Time No Known Allergies Allergy Unverified 01/21/20 19:29 [No Known Allergies*] Assessment & Plan Assessment & Plan (1) MDD (major depressive disorder), recurrent episode, moderate: Status: Acute Code(s): F33.1 - Major depressive disorder, recurrent, moderate (2) Cocaine use disorder: Status: Acute Code(s): F14.10 - Cocaine abuse, uncomplicated (3) Hypothyroidism: Status: Acute Code(s): E03.9 - Hypothyroidism, unspecified Plan continue home medications regimen. declines psych meds, but interested in therapy referral. planning to continue discussion and negotiation with his over the weekend with goal of reconciliation and return home. 06/01: Continue current tx plan. 06/02: Continue current management and treatment plan. 06/03: active on unit, social with peers. Patient reports feeling good today; pt stated, my and I have been talking and we're going to try couples therapy. I'm also going to do therapy . 3 day up Saturday. Denies SI/HI/VH/AH. 06/04/2023 Patient future oriented hopeful regarding treatment no psychosis mood stable discharge plan for tomorrow if stable Reason for continued inpatient stay Substantial Risk for: rapid decompensation Time Spent With Patient Time: Total time managing care of this patient today ____ minutes.
[2023-06-04] MEDS: Melatonin 3 MG TABLET 6 MG PO (22:25)
[2023-06-05] MEDS: Levothyroxine Sodium 150 MCG TABLET PO (06:21)
[2023-06-05 07:45] VITALS: BP 124/78; PULSE 64; TEMP 36.1; O2SAT 99
[2023-06-05] MEDS: Cholecalciferol (Vitamin D3) 25 MCG TABLET 50 MCG PO (08:31)
[2023-06-05] MEDS: Loratadine 10 MG TABLET PO (08:31)
--- NOTE | 2023-06-05 09:58 | P.DS_ITS ---
DS: Providers Provider Date of Service: 06/05/23 Date of admission: 05/30/23 15:16 Date of discharge: 06/05/23 Primary care physician: Natasha Physician Attending physician on admission: Bon Batista Attending physician on discharge: Gildardo Penaloza Discharging clinician: Sofia Fajardo DS: Diagnosis Discharge Diagnosis (1) MDD (major depressive disorder), recurrent episode, moderate: Status: Acute (2) Cocaine use disorder: Status: Acute (3) Hypothyroidism: Status: Acute DS: Medications Discharge Medications Home Medications: Home Medications Medication Instructions Recorded Confirmed cholecalciferol (vitamin D3) 50 50 mcg PO DAILY 05/27/23 05/30/23 mcg (2,000 unit) tablet (Vitamin D3) levothyroxine 150 mcg tablet 150 mcg PO DAILY 05/27/23 05/30/23 loratadine 10 mg tablet 10 mg PO DAILY 05/27/23 05/30/23 nabumetone 750 mg tablet 750 mg PO BID 05/27/23 05/30/23 Mental Status Exam Mental Status Exam Narrative: Pt is alert and oriented; behavior is cooperative and calm; dressed in casual attire; mood is described as good ; eye contact appropriate; Speech is normal rate, volume and prosody and not pressured; thought process is organized and goal directed; Thought content is on discharge; otherwise pertinent to relevant topics and without any delusional content, paranoid ideations or grandiosity; denies SI/HI/VH/AH. DS: Summary Hospital Course Hospital Course: per CARE team nelida, pt initially came to [facility] with police escort on 05/26 due to aggressive behavior in the community associated with crack cocaine use. he was admitted to medicine for [facility]. after several days he was medically stabilized and referred for inpatient psychiatric care. he reported to CARE team that he was kicked out of his home by his on saturday05/24/23 'for being too nitpicky,' after which time he stayed in a motel and used cocaine and alcohol for 2 days. he denied recalling anything that happened after he lapsed until after he had been admitted to the hospital. he stated he had been 7 years clean from crack until the weekend of use, and he blamed psychosocial stressors for his lapse. he endorsed SI with no particular plan. tox screen fentanyl, benzo, cocaine, cannabis POS. on re-eval of MS 2 days after the first, pt endorsed passive SI only. during re-eval collateral was collected from pt's , who reported she had asked pt to leave the home BECAUSE he had relapsed to substance use. she also reported pt had been making statements about not wanting to live anymore in front of the children and she did not want the kids exposed to that. on interview with MD on inpatient unit, pt is calm and cooperative. he expresses remorse for his actions and asserts he needs to take responsibility for them. he feels he does not need substance abuse treatment as he was sober for 7 years and knows how to stay sober. he also is not interested in psychiatric medication right now. he would, however, like to begin work with a therapist after discharge. he is focused on contact with his - he reports they spoke for 3 hours yesterday and 2 hours today - and mending that relationship and moving back into the house. he reports the only drugs he was attempting to use recently were alcohol, cocaine, and cannabis. he cannot e xplain how his urine was positive for fentanyl or benzos. he has no complaints or requests presently, just for some time to continue his recovery and develop his relationship with his . During hospital course, continue home medications regimen. declines psych meds, but interested in therapy referral. planning to continue discussion and negotiation with his over the weekend with goal of reconciliation and return home. 3 day up 06/05. active on unit, social with peers. Patient reports feeling good today; pt stated, my and I have been talking and we're going to try couples therapy. I'm also going to do therapy . Denies SI/HI/VH/AH. Patient future oriented hopeful regarding treatment no psychosis mood stable. Pt reports he plans on following up with outpatient providers. Time spent discussing smoking cessation with patient: 3 to 10 minutes Status at Discharge Cognitive/behavioral status at discharge: Patient was interviewed prior to discharge and found to be fully oriented and without any SI or HI. Patient is not in imminent risk of harm to self or others and has a safety plan that includes presenting to the closest ER or calling 911 if feeling unsafe. Functional status at discharge: independent ambulation Overall status at discharge: patient is back to baseline Time Spent with Patient Time attestation: Total time managing care of this patient today ____ minutes. Discharge Plan Discharge Anticipated Discharge Date/Time: 06/05/23 09:55 Patient Disposition: Home, Self-Care Discharge Diagnosis: MDD, Cocaine use d/o Referrals: Vanessa Jean-Baptiste (Therapy) [Other] - 06/10/23 12:00 pm (IN OFFICE APPOINTMENT -Please arrive fifteen minutes early to your appointment in order to fill out necessary paperwork. ) [facility] - 06/28/23 10:30 am (Dr Manuel Ly [phone],discharge appointment 06/28/2023 @ 1030am) Discharge Medications: Continued nabumetone 750 mg tablet 750 mg PO BID levothyroxine 150 mcg tablet 150 mcg PO DAILY Rx Instructions: Saturday through Saturday one tab 150mcg. Saturday 150mcg two tabs loratadine 10 mg tablet 10 mg PO DAILY cholecalciferol (vitamin D3) [Vitamin D3] 50 mcg (2,000 unit) tablet 50 mcg PO DAILY Discharge Orders: Discharge Order (Routine); Ordered 06/05/23 Ordered By: Sofia Fajardo Diet: Regular diet Activity on Discharge: As tolerated Stand Alone Forms: Patient Portal Discharge page, Community Support Care Plan Goals: Maintain mood and safe behaviors Take medications as prescribed Continue to pursue sobriety Practice coping skills Continue with outpatient providers and reach out to them as needed Health Concerns: Mood stability and behaviors Sobriety Plan of Treatment: Follow up with your PCP, psychiatric provider and other outpatient providers regarding above concerns Take medications as prescribed Assessment: Patient was interviewed prior to discharge and found to be fully oriented and without any SI or HI. Patient is not in imminent risk of harm to self or others and has a safety plan that includes presenting to the closest ER or calling 911 if feeling unsafe. Discharge Date/Time: 06/05/23 11:50
--- NOTE | 2023-06-05 12:22 | PC.NURSE ---
Patient easily engaged. Reports mood is stable. Denies depression or sadness, denies SI/HI plan or intent. Endorses mild anxiety. Planning to return to his home. Denies perceptual disturbances, no overt psychosis or expressed delusions. Discharge paperwork reviewed with patient reports understanding. Follow up appointment reviewed, reports understanding. Medication reviewed, states he has medication at home, reports understanding of administration times. All belongings taken with patient, including belongings from [employer]. Crisis numbers provided to patient.
== END 2023-06-05 11:50 | disposition home or self-care (01) | DRG 885 ==
PROVIDERS: Admitting Provider Psychiatry & Neurology Psychiatry; Visit Provider Psychiatry & Neurology Psychiatry
DX: F33.1 Major depressive disorder, recurrent, moderate (principal); R45.851 Suicidal ideations; E03.9 Hypothyroidism, unspecified; F14.10 Cocaine abuse, uncomplicated; Z71.6 Tobacco abuse counseling; Z91.49 Other personal history of psychological trauma, not elsewhere classified; Z79.890 Hormone replacement therapy; Z79.899 Other long term (current) drug therapy

== ENCOUNTER → 2023-05-30 15:16 | Outpatient (BNV) | payer MEDICARE, MEDICAID, SELFPAY | PROVIDERS: Admitting Provider Psychiatry & Neurology Psychiatry; Visit Provider Psychiatry & Neurology Psychiatry | DX: F33.1 Major depressive disorder, recurrent, moderate (principal); F14.10 Cocaine abuse, uncomplicated; E03.9 Hypothyroidism, unspecified | CPT/HCPCS: 90792; 99231; 99238 ==

== ENCOUNTER → 2023-05-30 15:16 | Outpatient (BNV) | payer MEDICARE, MEDICAID, SELFPAY | PROVIDERS: Admitting Provider Psychiatry & Neurology Psychiatry; Visit Provider Psychiatry & Neurology Psychiatry | DX: F33.1 Major depressive disorder, recurrent, moderate (principal); F14.10 Cocaine abuse, uncomplicated; E03.9 Hypothyroidism, unspecified | CPT/HCPCS: 99231 ==